=== PATIENT | female | born 1965 | race Hispanic/Latino ===

== ENCOUNTER 2019-11-07 13:51 | Inpatient (IN) | payer SELFPAY ==
[~2019-11-07] VITALS: Ht 160 cm; Wt 79.4 kg
[2019-11-07] MEDS ORDERED: DIATRIZOATE MEGL/DIATRIZOA SOD 30 ML BTL PO ONE (15:07)
--- NOTE | 2019-11-07 15:16 | Diagnostic Imaging Report ---
EXAMINATION: CHEST SINGLE (PORTABLE) COMPARISON: None INDICATION: Possible fluid in lungs ^ERMD ORDER ^[id number] ^1450 ^Y DISCUSSION: Frontal view of the chest obtained at 1442 hours HEART AND MEDIASTINUM: Cardiomegaly and vascular congestion LINES: None. LUNGS: Low lung volumes. No confluent infiltrates. Diffuse alveolar edema PLEURA: No pleural effusion or pneumothorax. BONES AND SOFT TISSUES: No focal osseous lesion. The soft tissues are normal. IMPRESSION: Cardiomegaly, pulmonary vascular congestion, and alveolar edema. Signed by: Dr. Tasha Figueroa MD on 11/07/2019 3:13 PM
[2019-11-07 15:27] LABS: BASOPHILS % 0.4 % (0.0-1.0); EOSINOPHILS # (AUTO) 0.1 (0.0-0.4); EOSINOPHILS % 1.6 % (0.0-6.0); LYMPHOCYTES # (AUTO) 1.3 (1.0-3.2); LYMPHOCYTES % 18.2 % (18.0-39.1); MEAN CORPUSCULAR HEMOGLOBIN 30.8 pg (28-32); MEAN CORPUSCULAR HGB CONC 32.4 g/dL (31-35); MEAN CORPUSCULAR VOLUME 95.1 fL (81-99); MONOCYTES # (AUTO) 0.3 (0.2-0.8); MONOCYTES % 4.9 % (4.4-11.3); NEUTROPHILS # (AUTO) 5.2 (2.1-6.9); NEUTROPHILS % 74.5 % (38.7-80.0); PLATELET COUNT 176 x10e3/uL (140-360); RED BLOOD COUNT 1.82 x10e6/uL (3.6-5.1); RED CELL DISTRIBUTION WIDTH 14.5 % (11.7-14.4)
[2019-11-07 15:35] LABS: HEMOGLOBIN 5.6 g/dL (12.0-16.0)
[2019-11-07 15:36] LABS: HEMATOCRIT 17.3 % (34.2-44.1)
[2019-11-07 15:38] LABS: INR 1.08; PROTHROMBIN TIME 14.7 seconds (11.9-14.5)
[2019-11-07 15:39] LABS: PARTIAL THROMBOPLASTIN TIME 27.6 seconds (23.8-35.5)
[2019-11-07] MEDS ORDERED: SODIUM CHLORIDE 0.9% 250ML 250 ML IV ONE (15:45)
[2019-11-07 15:49] LABS: ALBUMIN 2.3 g/dL (3.5-5.0); ALBUMIN/GLOBULIN RATIO 0.5 (0.8-2.0); CALCIUM 8.3 mg/dL (8.4-10.2); CREATININE, SERUM 6.79 mg/dL (0.57-1.11); MAGNESIUM 1.7 MG/DL (1.3-2.1)
[2019-11-07 15:55] LABS: CREATINE KINASE MB 3.9 ng/mL (0-5.0)
--- NOTE | 2019-11-07 16:33 | Diagnostic Imaging Report ---
CT chest, abdomen and pelvis without intravenous contrast Indication: Anemia, abdominal pain, ^SOB Technique: Thin collimation axial images obtained from the thoracic inlet to the level of the pubic symphysis following the uneventful administration of oral contrast. RADIATION DOSE: Total DLP: 935.6 mGy*cm Estimated effective dose: (DLP x 0.015 x size factor) mSv CTDIvol has been reviewed. It is below the limits set by the Radiation Protocol Committee (RPC). Dose reduction techniques used: Automated exposure control, adjustment of the mAs and/or kVp according to patient size, standardized low-dose protocol, and/or iterative reconstruction technique. Comparison: Chest x-ray 1442 hours. CHEST FINDINGS: Lymph nodes: No enlarged axillary or supraclavicular lymph nodes. Increased number of mediastinal lymph nodes measure less than 10 mm in short axis. Thyroid: Visualized portions are normal. Mediastinum: The heart is enlarged. Pericardial effusion measures 19 mm. The bird of the heart are hyperattenuating relative to the intracardiac blood. Main pulmonary artery measures 3 cm. The ascending aorta measures 3.4 cm. There is a small amount of contrast in the esophagus. No hiatal hernia. Lungs: Right Lung: Subsegmental atelectasis in the middle and lower lobes. No interstitial edema. No nodules. Potential infiltrate in the lateral segment of the lower lobe cannot be excluded Left Lung: Subsegmental atelectasis in the lung bases. No interstitial edema or nodule. Airways: Mild diffuse bronchial wall thickening. No bronchiectasis or filling defects. Pleura: Posterior layering right pleural effusion measures 4 cm with fluid tracking into the major fissure. Posterior layering left pleural effusion measures 1.9 cm with fluid tracking into the major fissure. ABDOMEN FINDINGS: Liver: Normal attenuation. Low attenuating lesion in segment 7 measures 6 mm, too small to characterize. The right lobe measures 22 cm in length Gallbladder: Present and appears normal. No biliary ductal dilatation. Pancreas: Normal attenuation without mass or ductal dilatation. Spleen: Normal in size without mass. Adrenal Glands: No evidence for mass. Kidneys: Right: Normal enhancement. No cortical mass. No hydronephrosis. Left: Normal enhancement. No cortical mass. No hydronephrosis. Lymph Nodes: No enlarged abdominal or periaortic lymph nodes. Aorta: Normal in diameter. Scattered calcifications throughout the aorta and the splenic artery. PELVIS FINDINGS: Bowel: Stomach: Normal. Small Bowel: Normal in caliber with normal wall thickness. Large Bowel: Normal in caliber with normal wall thickness. Appendix: Normal appendix. Bladder: Normal. Lymph Nodes: No enlarged mesenteric, pelvic, or inguinal lymph nodes. Uterus: Present with parametrial calcifications. No endometrial thickening. Ovaries/adnexa: Right and left ovaries are prominent. The right ovary measures 6.6 x 3.1 cm. The left ovary measures 6.6 x 2.9 cm. Peritoneum/retroperitoneum: No free fluid or fluid collection. No peritoneal nodularity. Bones: No lytic or blastic lesions. Soft tissues: Mild subcutaneous edema. IMPRESSION: 1. Bilateral pleural effusions. Moderate-sized pericardial effusion. 2. Hypoattenuation of the intracardiac blood suggestive of anemia. Mild cardiomegaly. 3. Bilateral pulmonary atelectasis. A focus of pneumonia in the right lower lobe cannot be excluded. 4. Prominent ovarian/adnexal structures. Recommend further characterization with pelvic ultrasound. 5. No evidence for bowel obstruction or inflammation. 6. Hepatomegaly. Subcentimeter hepatic cyst. 7. No splenomegaly or lymphadenopathy. Signed by: Dr. Tasha Figueroa MD on 11/07/2019 4:30 PM
[2019-11-07 17:12] LABS: CLARITY,URINE SL CLOUDY (CLEAR); COLOR,URINE YELLOW (YELLOW)
[2019-11-07 17:13] LABS: BILIRUBIN,URINE NEGATIVE (NEGATIVE); KETONES,URINE NEGATIVE (NEGATIVE); LEUKOCYTE ESTERASE ,URINE 2+ (NEGATIVE); NITRITE,URINE NEGATIVE (NEGATIVE); PROTEIN,URINE DIPSTICK 2+ (NEGATIVE); URINE UROBILINOGEN 0.2 mg/dL (0.2 - 1)
[2019-11-07] MEDS ORDERED: FUROSEMIDE INJ 10 MG/ML 2 ML VIAL IV NR ×2 (17:15→23:15)
--- OUTSIDE RECORDS SUMMARY | 2019-11-07 17:18 | XMS REPORT ---
Author [facility] Address Unknown Phone Unavailable Care Team Providers Care Hand Hardener Name Role Phone Jase BROWN Unavailable Unavailable Problems This patient has no known problems. Allergies, Adverse Reactions, Alerts This patient has no known allergies or adverse reactions. Medications This patient has no known medications. Results Test Description Test Time Test Comments Text Results Atomic Results Result Comments CT CHEST WO 2019-11-07 16:19:00 [place] [address] Patient Name: MINERVA GILMAN MR #: [id number] : 1965 Age/Sex: 54/F Req #: [id number] Adm Physician: Ordered by: ALAN FISHER NP Report #: [id number] Location: ER Room/Bed: Procedure: [id number] CT/CT CHEST WO Exam Date: Exam Time: REPORT STATUS: Signed CT chest, abdomen and pelvis without intravenous contrast Indication: A nemia, abdominal pain, SOB Technique: Thin collimation axial images obtained from the thoracic inlet to the level of the pubic symphysis following the uneventful administration of oral contrast. RADIATION DOSE: Total DLP: 935.6 mGy*cm Estimated effective dose: (DLP x 0.015 x size factor) mSv CTDIvol has been reviewed. It is below the limits set by the Radiation Protocol Committee (RPC). Dose reduction techniques used: Automated exposure control, adjustment of the mAs and/or kVp according to patient size, standardized low-dose protocol, and/or iterative reconstruction technique. Comparison: Chest x-ray 1442 hours. CHEST FINDINGS: Lymph nodes: No enlarged axillary or supraclavicular lymph nodes. Increased number of mediastinal lymph nodes measure less than 10 mm in short axis. Thyroid: Visualized portions are normal. Mediastinum: The heart is enlarged. Pericardial effusion measures 19 mm. The bird of the heart are hyperattenuating relative to the intracardiac blood. Main pulmonary artery measures 3 cm. The ascending aorta measures 3.4 cm. There is a small amount of contrast in the esophagus. No hiatal hernia. Lungs: Right Lung: Subsegmental atelectasis in the middle and lower lobes. No interstitial edema. No nodules. Potential infiltrate in the lateral segment of the lower lobe cannot be excluded Left Lung: Subsegmental atelectasis in the lung bases. No interstitial edema or nodule. Airways: Mild diffuse bronchial wall thickening. No bronchiectasis or filling defects. Pleura: Posterior layering right pleural effusion measures 4 cm with fluid tracking into the major fissure. Posterior layering left pleural effusion measures 1.9 cm with fluid tracking into the major fissure. ABDOMEN FINDINGS: Liver: Normal attenuation. Low attenuating lesion in segment 7 measures 6 mm, too small to characterize. The right lobe measures 22 cm in length Gallbladder: Present and appears normal. No biliary ductal dilatation. Pancreas: Normal attenuation without mass or ductal dilatation. Spleen: Normal in size without mass. Adrenal Glands: No evidence for mass. Kidneys: Right: Normal enhancement. No cortical mass. No hydronephrosis. Left: Normal enhancement. No cortical mass. No hydronephrosis. Lymph Nodes: No enlarged abdominal or periaortic lymph nodes. Aorta: Normal in diameter. Scattered calcifications throughout the aorta and the splenic artery. PELVIS FINDINGS: Bowel: Stomach: Normal. Small Bowel: Normal in caliber with normal wall thickness. Large Bowel: Normal in caliber with normal wall thickness. Appendix: Normal appendix. Bladder: Normal. Lymph Nodes: No enlarged mesenteric, pelvic, or inguinal lymph nodes. Uterus: Present with parametrial calcifications. No endometrial thickening. Ovaries/adnexa: Right and left ovaries are prominent. The right ovary measures 6.6 x 3.1 cm. The left ovary measures 6.6 x 2.9 cm. Peritoneum/retroperitoneum: No free fluid or fluid collection. No peritoneal nodularity. Bones: No lytic or blastic lesions. Soft tissues: Mild subcutaneous edema. IMPRESSION: 1. Bilateral pleural effusions. Moderate-sized pericardial effusion. 2. Hypoattenuation of the intracardiac blood suggestive of anemia. Mild cardiomegaly. 3. Bilateral pulmonary atelectasis. A focus of pneumonia in the right lower lobe cannot be excluded. 4. Prominent ovarian/adnexal structures. Recommend further characterization with pelvic ultrasound. 5. No evidence for bowel obstruction or inflammation. 6. Hepatomegaly. Subcentimeter hepatic cyst. 7. No splenomegaly or lymphadenopathy. Signed by: Dr. Amparo Figueroa MD on 11/07/2019 4:30 PM Dictated By: AMPARO FIGUEROA MD 163 Transcribed By: LATHA on 11/07/19 1630 COPY TO: ALAN FISHER NP CT ABDOMEN/PELVIS WO 2019-11-07 16:19:00 [place] [address] Patient Name: MINERVA GILMAN MR #: [id number] : 1965 Age/Sex: 54/F Req #: [id number] Adm Physician: Ordered by: ALAN FISHER NP Report #: [id number] Location: ER Room/Bed: Procedure: [id number] CT/CT ABDOMEN/PELVIS WO Exam Date: Exam Time: REPORT STATUS: Signed CT chest, abdomen and pelvis without intravenous contrast Tenisha cation: Anemia, abdominal pain, SOB Technique: Thin collimation axial images obtained from the thoracic inlet to the level of the pubic symphysis following the uneventful administration of oral contrast. RADIATION DOSE: Total DLP: 935.6 mGy*cm Estimated effective dose: (DLP x 0.015 x size factor) mSv CTDIvol has been reviewed. It is below the limits set by the Radiation Protocol Committee (RPC). Dose reduction techniques used: Automated exposure control, adjustment of the mAs and/or kVp according to patient size, standardized low-dose protocol, and/or iterative reconstruction technique. Comparison: Chest x-ray 1442 hours. CHEST FINDINGS: Lymph nodes: No enlarged axillary or supraclavicular lymph nodes. Increased number of mediastinal lymph nodes measure less than 10 mm in short axis. Thyroid: Visualized portions are normal. Mediastinum: The heart is enlarged. Pericardial effusion measures 19 mm. The bird of the heart are hyperattenuating relative to the intracardiac blood. Main pulmonary artery measures 3 cm. The ascending aorta measures 3.4 cm. There is a small amount of contrast in the esophagus. No hiatal hernia. Lungs: Right Lung: Subsegmental atelectasis in the middle and lower lobes. No interstitial edema. No nodules. Potential infiltrate in the lateral segment of the lower lobe can not be excluded Left Lung: Subsegmental atelectasis in the lung bases. No interstitial edema or nodule. Airways: Mild diffuse bronchial wall thickening. No bronchiectasis or filling defects. Pleura: Posterior layering right pleural effusion measures 4 cm with fluid tracking into the major fissure. Posterior layering left pleural effusion measures 1.9 cm with fluid tracking into the major fissure. ABDOMEN FINDINGS: Liver: Normal attenuation. Low attenuating lesion in segment 7 measures 6 mm, too small to characterize. The right lobe measures 22 cm in length Gallbladder: Present and appears normal. No biliary ductal dilatation. Pancreas: Normal attenuation without mass or ductal dilatation. Spleen: Normal in size without mass. Adrenal Glands: No evidence for mass. Kidneys: Right: Normal enhancement. No cortical mass. No hydronephrosis. Left: Normal enhancement. No cortical mass. No hydronephrosis. Lymph Nodes: No enlarged abdominal or periaortic lymph nodes. Aorta: Normal in diameter. Scattered calcifications throughout the aorta and the splenic artery. PELVIS FINDINGS: Bowel: Stomach: Normal. Small Bowel: Normal in caliber with normal wall thickness. Large Bowel: Normal in caliber with normal wall thickness. Appendix: Normal appendix. Bladder: Normal. Lymph Nodes: No enlarged mesenteric, pelvic, or inguinal lymph nodes. Uterus: Present with parametrial calcifications. No endometrial thickening. Ovaries/adnexa: Right and left ovaries are prominent. The right ovary measures 6.6 x 3.1 cm. The left ovary measures 6.6 x 2.9 cm. Peritoneum/retroperitoneum: No free fluid or fluid collection. No peritoneal nodularity. Bones: No lytic or blastic lesions. Soft tissues: Mild subcutaneous edema. IMPRESSION: 1. Bilateral pleural effusions. Moderate-sized pericardial effusion. 2. Hypoattenuation of the intracardiac blood suggestive of anemia. Mild cardiomegaly. 3. Bilateral pulmonary atelectasis. A focus of pneumonia in the right lower lobe cannot be excluded. 4. Prominent ovarian/adnexal structures. Recommend further characterization with pelvic ultrasound. 5. No evidence for bowel obstruction or inflammation. 6. Hepatomegaly. Subcentimeter hepatic cyst. 7. No splenomegaly or lymphadenopathy. Signed by: Dr. Amparo Figueroa MD on 11/07/2019 4:30 PM Dictated By: AMPARO FIGUEROA MD 163 Transcribed By: LATHA on 11/07/19 1630 COPY TO: ALAN FISHER NP CHEST SINGLE (PORTABLE) 2019-11-07 15:11:00 [place] [address] Patient Name: MINERVA GILMAN MR #: [id number] : 1965 Age/Sex: 54/F Req #: [id number] Adm Physician: Ordered by: ALAN FISHER NP Report #: [id number] Location: ER Room/Bed: Procedure: [id number] DX/CHEST SINGLE (PORTABLE) Exam Date: 11/07/19 Exam Time: 1450 REPORT STATUS: Signed EXAMINATION: CHEST SINGLE (PORTABLE) COMPARI SON: None INDICATION: Possible fluid in lungs ERMD ORDER [id number] 1450 Y DISCUSSION: Frontal view of the chest obtained at 1442 hours HEART AND MEDIASTINUM: Cardiomegaly and vascular congestion LINES: None. LUNGS: Low lung volumes. No confluent infiltrates. Diffuse alveolar edema PLEURA: No pleural effusion or pneumothorax. BONES AND SOFT TISSUES: No focal osseous lesion. The soft tissues are normal. IMPRESSION: Cardiomegaly, pulmonary vascular congestion, and alveolar edema. Signed by: Dr. Amparo Figueroa MD on 11/07/2019 3:13 PM Dictated By: AMPARO FIGUEROA MD 1513 Transcribed By: LATHA on 11/07/19 1513 COPY TO: ALAN FISHER NP
[2019-11-07 17:24] LABS: BACTERIA,URINE MODERATE /HPF; EPITHELIAL CELLS,URINE MANY /LPF
--- NOTE | 2019-11-07 18:38 | NUR ---
received pt from ER. pt made comfortable to bed, orientation to room given, call villegas at bedside
[2019-11-07 18:45] VITALS: BP 190/90
[2019-11-07] MEDS ORDERED: SODIUM CHLORIDE 0.9% 1000ML 1,000 ML IV SCH (19:15)
[2019-11-07] MEDS ORDERED: ALBUTEROL/IPRATROPIUM 3 ML NEB NEB PRN (19:15)
[2019-11-07] MEDS ORDERED: ACETAMINOPHEN 325 MG TAB PO PRN (19:15)
[2019-11-07 20:00] VITALS: BP 190/90
--- NOTE | 2019-11-07 20:15 | NUR ---
Received change of shift report from AM nurse. Walking rounds completed.
[2019-11-07] MEDS ORDERED: MELATONIN 5 MG TABLET PO PRN (21:00)
[2019-11-07] MEDS: CEFTRIAXONE SOD 1 GM/NS 50 ML 50 ML IV SCH (21:00)
[2019-11-07] MEDS ORDERED: PIPERACILLIN/TAZO 2.25 GM 50 ML IV SCH (21:00)
--- NOTE | 2019-11-07 21:00 | NUR ---
Patient sitting up in bed, slightly sob but in no distress. Called RT for a TX. TX given. Patient to get blood transfusion. Waiting to hear from lab. Patient AAOx3 but [place] in left ear and nearly blind. Denies pain at this time.
[2019-11-07] MEDS: AZITHROMYCIN 500MG/NS 250 ML 250 ML IV SCH (22:00)
[2019-11-07 22:25] LABS: CREATINE KINASE MB 2.4 ng/mL (0-5.0)
[2019-11-07 23:56] VITALS: BP 176/53
[2019-11-08] VITALS (8 sets, daily range): BP systolic 151–193; BP diastolic 69–89
--- NOTE | 2019-11-08 | NUR ---
Patient received BP meds for BP of 170/79. Will start blood in one hour. Family at bedside.
[2019-11-08] MEDS: HYDRALAZINE HCL 20 MG/ML VIAL IV PRN (00:27)
--- NOTE | 2019-11-08 01:00 | NUR ---
Started first unit of blood. Patient tolerating well. Continue monitor. See blood sheet for vitals during transfusion. Patient stable with no c/o at this time.
[2019-11-08] MEDS ORDERED: SODIUM CHLORIDE 0.9% 250ML 250 ML ONE (01:01)
[2019-11-08] MEDS ORDERED: NORVASC5 MG PO (01:55)
[2019-11-08] MEDS ORDERED: GLIPIZIDE ER5 MG PO (01:56)
[2019-11-08] MEDS ORDERED: HYDROCHLOROTHIA25 MG PO (02:03)
[2019-11-08] MEDS ORDERED: MUCINEX DM ER1 EACH PO (02:03)
[2019-11-08] MEDS ORDERED: LOSARTAN POTAS100 MG PO (02:04)
[2019-11-08] MEDS ORDERED: SEVELAMER CARB800 MG PO (02:12)
[2019-11-08] MEDS ORDERED: VASOTEC5 MG PO (02:13)
[2019-11-08] MEDS ORDERED: DIOVAN160 MG PO (02:15)
[2019-11-08] MEDS: ALBUTEROL/IPRATROPIUM 3 ML NEB NEB SCH ×3 (03:10→19:30)
[2019-11-08] MEDS ORDERED: FUROSEMIDE INJ 10 MG/ML 4 ML VIAL ONE (03:58)
--- NOTE | 2019-11-08 04:00 | NUR ---
Patient increased coughing, nose drainging and chills. First unit of blood completed. Patient sitting up in chair. Will call MD regarding 2 unit of blood.
--- NOTE | 2019-11-08 05:22 | NUR ---
Called s/maury Santiago and received orders for stat CXR and RT then reassess after x-ray.
--- NOTE | 2019-11-08 06:02 | Diagnostic Imaging Report ---
Examination: Single AP view of the chest. COMPARISON: CT chest abdomen and pelvis 11/07/2019 INDICATION: Shortness of breath DISCUSSION: Lungs are reasonably well inflated. Small bilateral pleural effusions are seen to better advantage on comparison CT. No new consolidation or pneumothorax. Enlargement of the cardiac silhouette shown to represent a pericardial effusion on comparison examination. Mild pulmonary venous congestion. No acute osseous abnormalities. IMPRESSION: Pulmonary venous congestion and small bilateral pleural effusions. Findings seen to better advantage on CT chest 11/07/2019. Signed by: Dr. Dell Sung M.D. on 11/08/2019 5:58 AM
[2019-11-08 06:46] LABS: BASOPHILS # (AUTO) 0.1 (0.0-0.1); BASOPHILS % 0.7 % (0.0-1.0); EOSINOPHILS # (AUTO) 0.1 (0.0-0.4); EOSINOPHILS % 1.1 % (0.0-6.0); LYMPHOCYTES # (AUTO) 1.2 (1.0-3.2); LYMPHOCYTES % 15.6 % (18.0-39.1); MEAN CORPUSCULAR HGB CONC 32.2 g/dL (31-35); MEAN CORPUSCULAR VOLUME 96.3 fL (81-99); MONOCYTES # (AUTO) 0.6 (0.2-0.8); MONOCYTES % 7.5 % (4.4-11.3); NEUTROPHILS # (AUTO) 5.6 (2.1-6.9); NEUTROPHILS % 74.6 % (38.7-80.0); PLATELET COUNT 206 x10e3/uL (140-360); RED BLOOD COUNT 2.16 x10e6/uL (3.6-5.1); RED CELL DISTRIBUTION WIDTH 14.1 % (11.7-14.4)
[2019-11-08 06:49] LABS: HEMATOCRIT 20.8 % (34.2-44.1); HEMOGLOBIN 6.7 g/dL (12.0-16.0)
[2019-11-08 07:19] LABS: CREATINE KINASE MB 2.2 ng/mL (0-5.0)
[2019-11-08] MEDS: ONDANSETRON HCL INJ 2MG/ML 2ML 2 MG/ML VIAL IV PRN ×3 (07:19→22:32)
[2019-11-08] MEDS ORDERED: FAMOTIDINE 20 MG TAB PO SCH (07:30)
[2019-11-08 07:35] LABS: ALBUMIN 2.2 g/dL (3.5-5.0); BILIRUBIN,DIRECT 0.2 mg/dL (0.0-0.5); MAGNESIUM 1.7 MG/DL (1.3-2.1)
[2019-11-08 07:56] LABS: THYROID STIMULATING HORMONE 3.183 uIU/mL (0.350-4.940)
[2019-11-08 08:09] LABS: ANION GAP 14.1 mmol/L (8-16); CALCIUM 8.3 mg/dL (8.4-10.2); CREATININE, SERUM 6.85 mg/dL (0.57-1.11); MAGNESIUM 1.7 MG/DL (1.3-2.1); PHOSPHORUS 5.2 MG/DL (2.3-4.7); POTASSIUM 4.1 mmol/L (3.5-5.1)
[2019-11-08 08:22] LABS: FERRITIN 67.08 ng/mL (4.63-204.00)
[2019-11-08] MEDS: GUAIFENESIN 600MG/DEXTROMETHORPHAN 30MG TABSR PO SCH ×2 (08:46→18:16)
[2019-11-08] MEDS ORDERED: FUROSEMIDE INJ 10 MG/ML 10 ML VIAL IV ONE (10:45)
[2019-11-08] MEDS: AMLODIPINE BESYLATE 5 MG TAB PO SCH (11:15)
--- NOTE | 2019-11-08 13:22 | Diagnostic Imaging Report ---
Ventilation/perfusion lung scan Clinical Information: 54 F with SOB and cough. Chest radiograph shows small bilateral pleural effusions. Comparison: Chest radiograph 11/08/2019; CT chest 11/07/2019 Discussion: Xenon-133 gas 13.8 mCi was administered via inhalation. Dynamic images of the lungs in the posterior projection were obtained through single breath, equilibrium, and washout phases. A moderate ventilatory defect is seen in the right lung base laterally. Otherwise, distribution of tracer activity is minimally irregular throughout the lungs. Washout of tracer is diffusely delayed with air trapping in the right lung base. Perfusion images of the lungs were obtained in multiple projections following intravenous administration of approximately 5 mCi of Tc-99m MAA. Distribution of tracer is irregular throughout the lungs. Tracer is very irregular throughout the right lower lobe with a segmental moderate-sized perfusion defect in the lateral aspect of the right lung base. The ventilation images are matched to the perfusion images. The cardiomediastinal silhouette is enlarged. Impression: 1. Scan findings represent an INTERMEDIATE probability for acute pulmonary embolic disease based on the PIOPED II criteria. This is assigned on the presence of a triple-match in the RLL. 2. Scan evidence of parenchymal lung disease in the right lower lobe. 3. Scan evidence of obstructive lung disease. 4. Enlarged cardiac silhouette. Signed by: Dr. Giovanna Hutchison M.D. on 11/08/2019 1:19 PM
[2019-11-08] MEDS ORDERED: BUMETANIDE 10 MG in SODIUM CHLORIDE 0.9% 100 ML 60 ML IV SCH (15:00)
[2019-11-08] MEDS ORDERED: EPOETIN ALFA-EPBX 10,000 UNIT/ML VIAL SC NR (15:30)
[2019-11-08] MEDS: BUMETANIDE 10 MG in SODIUM CHLORIDE 0.9% 100 ML 60 ML IV SCH ×2 (17:05→22:31)
[2019-11-08 17:15] LABS: CREATINE KINASE MB 2.3 ng/mL (0-5.0)
--- NOTE | 2019-11-08 17:20 | Consultation ---
DATE OF CONSULTATION: 11/08/2019 REASON FOR CONSULTATION: Pericardial effusion. CHIEF COMPLAINT: Shortness of breath. HISTORY OF PRESENT ILLNESS: This is a 54-year-old female with history of hypertension, diabetes, and chronic kidney disease. The patient presents to [facility] ER with complaints of shortness of breath. Imaging noted with pulmonary edema, bilateral pleural effusions, and CT noted with moderate pericardial effusion. Cardiology was consulted to evaluate the patient. The patient is seen in room, reports has been short of breath for the past several months, went to see her primary care physician in which was advised to go to the ER for further evaluation. The patient reports shortness of breath for several months with minimal activities. Lower extremity edema and profound weakness. The patient denies any chest pains. Main complaint is weakness and lower extremity edema and shortness of breath. PAST MEDICAL HISTORY: Diabetes, hypertension, chronic kidney disease. PAST SURGICAL HISTORY: Denies any surgeries. SOCIAL HISTORY: She is . She denies any alcohol or tobacco use. FAMILY HISTORY: Mother , history of diabetes and heart disease. Father , history of leukemia. HOME MEDICATIONS: Include hydrochlorothiazide 25 mg daily, losartan 100 mg daily, amlodipine 10 mg daily, glipizide 10 mg daily. ALLERGIES: NO KNOWN ALLERGIES. REVIEW OF SYSTEMS: GENERAL: Reports positive weight gain. Positive fatigue and weakness. Denies any fevers or chills. SKIN: No rashes or sores. HEENT: No nausea, vomiting, vision change, blurred vision, double vision, epistaxis, sore throat, or swollen neck. CARDIAC: Positive for dyspnea on exertion. Positive for lower extremity edema. Denies any chest pain. RESPIRATORY: Positive for shortness of breath. Positive for intermittent cough, nonproductive. Denies any hemoptysis. GI: Reports poor appetite. No nausea, vomiting, diarrhea, constipation, melena, hematochezia, or tarry bloody stools. URINARY: Denies any frequency, urgency, dysuria, or hematuria. VASCULAR: Positive for lower extremity edema. No claudication reported. MUSCULOSKELETAL: Positive for muscle weakness, joint pains, back pains, and lower extremity swelling. NEUROLOGIC: Denies any numbness, tingling, or tremors. Positive for weakness. Denies any fainting or blackout seizures. HEMATOLOGY: Denies any anemia or bruising. ENDOCRINE: Denies heat or cold intolerance, polyphagia, or polydipsia. PHYSICAL EXAMINATION: VITAL SIGNS: Height 63 inches, weight 176 pounds. Vital signs, temperature 98.4, pulse 97, respiratory rate 16, blood pressure 178/81, pulse ox 99 on room air. GENERAL: Appears stated age, reliable informant, appears chronically ill. SKIN: No rashes or bruises noted. HEENT: Normocephalic. Pupils equal and reactive. Extraocular movements intact. Trachea midline. No JVD. No carotid bruit noted. HEART: Regular rate and rhythm. No murmurs or clicks noted or rubs. LUNGS: Bilateral breath sounds with crackles at the bases and also diminished bilaterally. ABDOMEN: Soft, nontender, and nondistended. No organomegaly noted. MUSCULOSKELETAL: Positive for generalized weakness. Positive for lower extremity edema. VASCULAR: +2 radial pulse bilaterally, +2 DP and PT pulses bilaterally. NEUROLOGIC: Cranial nerves II through XII seem intact. LABORATORY DATA: White count 6, hemoglobin of 5.6, hematocrit of 17, platelets 176. Chemistry, sodium 137, potassium 4.0, chloride 113, BUN 46, creatinine 6.7, GFR 6, A1c of 5.3. Troponin 0.04, next 0.03, next 0.3. BNP 1342. TSH 3.1. DIAGNOSTIC DATA: Chest x-ray showing cardiomegaly, pulmonary congestion. CT abdomen and chest showing bilateral pleural effusions and moderate-sized pericardial effusion and bilateral pulmonary atelectasis and prominent ovarian and renal structures. No EKG noted in chart. ASSESSMENT: 1. Chronic kidney disease, stage 5. 2. Profound anemia. 3. Bilateral pleural effusions. 4. Pericardial effusion noted on CT. PLAN: 1. The patient presents to [facility] ER with complaints of several months of complaints of lower extremity edema, shortness of breath noted with advanced chronic renal ailure and found anemia. Notable pericardial effusion on CT. Cardiology was consulted. 2. We will get echo to evaluate pericardial effusion. 3. However, mainstay of therapy will need renal evaluation and possible HD therapy. 4. From cardiac standpoint, therapy will be supportive. Thank you very much for this consult. Dictated by Dell Pizano NP Jim Strauss MD DC/NOL /[id number]
[2019-11-08 17:26] LABS: HIV 1&2 AB SCREEN NON-REACTIVE (NONREACTIVE)
[2019-11-08] MEDS: SEVELAMER CARBONATE 800 MG TAB PO SCH (18:16)
[2019-11-08] MEDS: SODIUM BICARBONATE 650 MG TAB PO SCH (18:16)
[2019-11-08] MEDS: DOCUSATE SODIUM 100 MG CAP PO SCH (18:16)
[2019-11-08] MEDS: AZITHROMYCIN 500MG/NS 250 ML 250 ML IV SCH (19:15)
[2019-11-08] MEDS: CEFTRIAXONE SOD 1 GM/NS 50 ML 50 ML IV SCH (19:15)
--- NOTE | 2019-11-08 19:25 | Diagnostic Imaging Report ---
EXAM: Renal Ultrasound INDICATION: ^arf ^[id number] ^[id number] COMPARISON: CT abdomen and pelvis without contrast 11/07/2019 TECHNIQUE: Transverse and longitudinal images of the kidneys and bladder were obtained. FINDINGS: Right Kidney: Size: 10.4 cm Echogenicity: Normal Parenchymal thickness: Normal Collecting system: No hydronephrosis Stones: None Cyst/Mass: None Left Kidney: Size: 10.9 cm Echogenicity: Normal Parenchymal thickness: Normal Collecting system: No hydronephrosis Stones: None Cyst/Mass: None Bladder: Unremarkable. Left ureteral jet is identified. Right ureteral jet not identified likely related to scan timing. IMPRESSION: Normal renal ultrasound exam. Signed by: Dr. Dell Sung M.D. on 11/08/2019 7:23 PM
--- NOTE | 2019-11-08 19:31 | NUR ---
Received change of shift report from AM nurse. Walking rounds completed.
--- NOTE | 2019-11-08 21:56 | Consultation ---
DATE OF CONSULTATION: 11/08/2019 Nephrology Consultation Note CHIEF COMPLAINT: Shortness of breath. REASON FOR CONSULTATION: CKD management, possibly now end-stage renal disease. HISTORY OF PRESENT ILLNESS: This is a 54-year-old female, very pleasant patient with history of type 2 diabetes and hypertension, uncontrolled for significant number of years who presented to the emergency room with underlying shortness of breath. The patient sees a physician here in [place] and has been seeing him for the last 2 years. Of note, the family reports that about several months ago, she was told by the physician that she has abnormal kidney function and needs further evaluation and management. The patient has been very noncompliant seeing a physician in the past and of note has recently started seeing a doctor over the last 2 years. Apparently, the patient has had unknown history of type 2 diabetes for significant number of years as well as hypertension. Of note, she is aware of having her diabetes for more than 10 plus years if not longer, but has not seek any care throughout this time. She started getting oral anti-glycemic medications over the last 2 years, but recently her blood glucose level is found to be normal and was taken off her oral anti-glycemics. Family reports that she has been very nauseous, tired, weak, fatigued, and not eating much over the last several months. She does have asterixis on examination. She also reports some increased fatigue and sleepiness, but denies any headache. She does report some nausea and occasional vomiting. The patient feels more down, felt very depressed according to her family. The patient was seen and evaluated at bedside on the medical floor. She is currently doing well with no other issues at this time. No reports of any suicidal or homicidal ideation. She is just feeling very tired and weak, and that is why, she feels very down and depressed. She has been having increased anasarca over the last several months as well. REVIEW OF SYSTEMS: Pertinent positives; nausea, vomiting, decreased oral intake, fatigue, weak, sleepiness, lower extremity edema. The rest of 14-point review of systems are reviewed with the patient and are negative. ALLERGIES: NO KNOWN DRUG ALLERGIES. HOME MEDICATIONS: 1. Enalapril. 2. Glipizide. 3. Hydrochlorothiazide. 4. Losartan. 5. Valsartan. 6. Amlodipine. 7. Renvela. PAST MEDICAL HISTORY: Type 2 diabetes and hypertension, both uncontrolled; unknown history of chronic kidney disease. PAST SURGICAL HISTORY: None. FAMILY HISTORY: Hypertension, diabetes. SOCIAL HISTORY: No drugs. No alcohol. Does not smoke. She is . She has children. She does not work. PHYSICAL EXAMINATION: VITAL SIGNS: Temperature is 98.1, pulse is 110, respiratory rate is 22, last blood pressure recorded is 193/89, pulse ox 99% on room air. GENERAL: Not in acute distress. Alert and oriented x3. Cooperative on examination. HEENT: Head; normocephalic, atraumatic. Eyes; pupils are equal, round, and reactive to light bilaterally. Extraocular movements are intact bilaterally. Throat; no evidence of erythema or exudates in the posterior pharynx. Has poor dentition. NECK: Supple. Good range of motion. PULMONARY: Clear to auscultation bilaterally. No wheezing, no rales, no rhonchi, no crackles appreciated. CARDIOVASCULAR: Positive S1, S2. No murmurs, rubs, or gallops appreciated. ABDOMEN: Soft, nondistended, and nontender to palpation. Bowel sounds present. MUSCULOSKELETAL: Strength is 5/5 throughout. No evidence of any muscle deficits on examination. No weakness appreciated. NEUROLOGIC: Cranial nerves II through XII grossly intact. No evidence of any neurological deficits on exam. SKIN: Intact. Warm to touch. Good cap refill. PSYCHIATRIC: Normal affect and mood. EXTREMITIES: She has significant anasarca with 3+ pedal edema in bilateral lower extremities. LABORATORY DATA: Show white count 7.5, hemoglobin is 6.7, hematocrit is 20.9, platelets of 206. Coagulation; PT 14, INR 1.08, PTT 27.6. D-dimer is 1.67. Chemistry; sodium was 139, potassium is 4.1, chloride is 115, bicarbonate is 14, anion gap of 14, BUN is 50, creatinine is 6.85, A1c is 5.3. Lactic acid was normal. Iron saturation 28%. LFTs within normal range. Troponins were negative. Albumin 2.2. TSH 3.183. Vitamin B12 of 742. Urinalysis shows 2+ protein, 1+ glucose, cloudy urine. MICROBIOLOGY: Blood and urine cultures are pending. IMAGING STUDIES: Chest x-ray shows some vascular congestion with cardiomegaly. Chest CT, bilateral pleural effusions with moderate size pericardial effusion. Hypoattenuation of cardiac blood suggestive of anemia. Mild cardiomegaly. Bilateral pulmonary atelectasis. No evidence of bowel obstruction or inflammation. No splenomegaly or adenopathy. CT abdomen and pelvis shows the patient has normal enhancement of the kidneys. No cortical mass. No hydronephrosis. V/Q scan noted, shows intermediate probability for acute pulmonary embolism based on the criteria. There is a sign, presence of triple match in the right lower quadrant. There is scant evidence of obstructive lung disease. IMPRESSION: 1. Chronic kidney disease, stage 5, likely end-stage renal disease due to uncontrolled type 2 diabetes and hypertension. 2. Anemia of chronic kidney disease. 3. Secondary hyperparathyroidism. 4. Uncontrolled type 2 diabetes. 5. Hypertension. 6. Metabolic acidosis due to renal failure. PLAN: At this time, I had a long discussion with the patient and the family at bedside and it seems that this patient likely has been having uncontrolled type 2 diabetes and hypertension for a significant number of years, and of note, she was told by her PCP that she has renal failure and needs to watch her diet. She has not been seeing a doctor for in the past and has been recently seeing a doctor over the last 2 years. I asked the family to bring the records from the primary care physician's office tomorrow in an order for me to verify the renal function more than a year ago that will give me a baseline understanding of what her renal function is. At this time, I feel like that the patient likely has end-stage renal disease based on her symptoms that she has currently occurring as well as her elevated phosphorus level. Also, from her uncontrolled type 2 diabetes for a number of years as well as hypertension, which is likely etiology. She was also found to have hypoalbuminemia, which is also likely etiology as well. At this time, I did order a urine protein to creatinine, microalbumin to creatinine as well as several serologies including p-ANCA, c-ANCA, anti-GBM, dimf-[id number]-ircybvdp DNA, renal ultrasound, C3, C4, intact PTH as well for further analysis and evaluation. I did consult with IR to put a temporary hemodialysis catheter. The patient will receive 3 treatments of HD starting tomorrow, titrating slow to reach to maximum blood flow rate on day #4. I did discuss with the family about looking to see possibly getting likely insurance as the patient would like to be on chronic hemodialysis. Family has been working on that. I will get Case Management involved as well to help and assist in this as she will likely end up in the dialysis unit as well. If the renal function does not improve, which I feel less likely will, then I may consider a renal biopsy if the size of the kidneys are within normal range based on renal ultrasound. I will go ahead and start her on Bumex 2 mg/hour to help with her breathing as she is currently very short of breath and cannot lay flat. She does also have significant amount of pericardial effusion, which is likely to be from uremia as well. I will start the patient on sodium bicarbonate tablets at 1350 mg p.o. b.i.d., and I will start her on erythropoietin at 10,000 units subcu 3 times per week. We will get morning labs. We will monitor all the serologies. I had a long discussion with the family. I discussed with them overall plan of care, also discussed with them about hemodialysis, the risks and benefits involved, and they seem to be very receptive and agree with my plan of care. Nurse was present throughout the entire conversation. MD LISA Bustamante/MIKE /[id number]
--- NOTE | 2019-11-08 22:33 | NUR ---
Patient c/o n/v and pain. Given meds as ordered by MD. Cold towel to head and neck. Patient sitting up in chair at bedside.
--- NOTE | 2019-11-08 22:57 | NUR ---
Patient up ambulation to the restroom with walker and 1 person asst. Patient voiding 300cc at at time. Continue monitor.
[2019-11-09] VITALS (9 sets, daily range): BP systolic 124–177; BP diastolic 60–76
[2019-11-09] MEDS: ALBUTEROL/IPRATROPIUM 3 ML NEB NEB SCH ×4 (00:25→19:45)
--- NOTE | 2019-11-09 01:04 | NUR ---
Patient state still have pain. Called and s/w Alberto. Received orders. Order completed. Monitor for changes or improvement.
[2019-11-09] MEDS: BUMETANIDE 10 MG in SODIUM CHLORIDE 0.9% 100 ML 60 ML IV SCH ×4 (03:00→22:30)
[2019-11-09] MEDS: TRAMADOL HCL 50 MG TAB PO PRN ×2 (03:37→16:10)
[2019-11-09 05:49] LABS: BASOPHILS % 0.5 % (0.0-1.0); EOSINOPHILS % 0.4 % (0.0-6.0); LYMPHOCYTES # (AUTO) 1.1 (1.0-3.2); MEAN CORPUSCULAR HEMOGLOBIN 30.8 pg (28-32); MEAN CORPUSCULAR HGB CONC 32.5 g/dL (31-35); MONOCYTES # (AUTO) 0.5 (0.2-0.8); MONOCYTES % 6.5 % (4.4-11.3); NEUTROPHILS # (AUTO) 5.7 (2.1-6.9); NEUTROPHILS % 77.2 % (38.7-80.0); PLATELET COUNT 176 x10e3/uL (140-360); RED BLOOD COUNT 2.01 x10e6/uL (3.6-5.1); RED CELL DISTRIBUTION WIDTH 14.1 % (11.7-14.4)
[2019-11-09 06:02] LABS: HEMOGLOBIN 6.2 g/dL (12.0-16.0)
[2019-11-09 06:03] LABS: HEMATOCRIT 19.1 % (34.2-44.1)
[2019-11-09 06:13] LABS: ANION GAP 12.8 mmol/L (8-16); CALCIUM 7.9 mg/dL (8.4-10.2); CREATININE, SERUM 6.94 mg/dL (0.57-1.11); MAGNESIUM 1.7 MG/DL (1.3-2.1); POTASSIUM 3.8 mmol/L (3.5-5.1)
[2019-11-09 06:55] LABS: PHOSPHORUS 5.9 MG/DL (2.3-4.7)
--- NOTE | 2019-11-09 07:20 | NUR ---
PATIENT IN BED RESTING WITH HEAD OF BED ELEVATED, NO DISTRESS NOTED. TELEMETRY BOX IN PLACE. BED IN LOWER POSITION, CALL LIGHT AT REACH.
[2019-11-09] MEDS: SEVELAMER CARBONATE 800 MG TAB PO SCH ×2 (08:00→17:00)
[2019-11-09] MEDS: DOCUSATE SODIUM 100 MG CAP PO SCH ×2 (09:00→17:00)
[2019-11-09] MEDS: SODIUM BICARBONATE 650 MG TAB PO SCH ×2 (09:00→17:00)
[2019-11-09] MEDS: AMLODIPINE BESYLATE 5 MG TAB PO SCH (09:00)
[2019-11-09] MEDS: GUAIFENESIN 600MG/DEXTROMETHORPHAN 30MG TABSR PO SCH ×2 (09:00→17:00)
--- NOTE | 2019-11-09 09:00 | NUR ---
PATIENT OFF UNIT FOR A PROCEDURE.
[2019-11-09] MEDS: ONDANSETRON HCL INJ 2MG/ML 2ML 2 MG/ML VIAL IV PRN (09:50)
[2019-11-09] MEDS: HYDRALAZINE HCL 20 MG/ML VIAL IV PRN (09:50)
--- NOTE | 2019-11-09 09:57 | NUR ---
PATIENT BACK TO UNIT FROM RADIOLOGY. HAD A DIALYSIS CATHETER TO RIGHT UPPER CHEST WITH DRESSING INTACT. C/O NAUSEA AND WAS MEDICATED. ASSISTED BACK IN BED. WILL CLOSELY MONITOR.
[2019-11-09] MEDS ORDERED: CHLORASEPTIC SPRAY 177 ML BTL MM PRN (10:00)
--- NOTE | 2019-11-09 10:05 | Diagnostic Imaging Report ---
Nontunneled dialysis catheter insertion, 11/09/2019. History: Acute kidney injury requiring hemodialysis. Modality: Fluoroscopy and sonography. Sedation: None. Newspaper Vendor: Aaron Ling MD. Supervisor Vendor Quality: None. Approach: Right internal jugular vein Estimated blood loss: < 5 cc. Specimen: None. Fluoroscopy Time: 0.2 min. Reference Air Kerma (Ka, r): 3.1 mGy. Technique: Informed written consent was obtained. Discussion of risks, benefits, and alternatives were made with the patient. The patient expressed understanding and agreed to proceed. A universal timeout was performed prior to starting the procedure. All elements maximal sterile barrier technique was utilized for this procedure, including utilization of sterile scrub solution for skin prep, a large sterile sheet to cover the areas of the patient that were not prepped, and hand hygiene, mask, head covering, and sterile gown for performing radiologist and scrub technologist.The skin was anesthetized with 2% lidocaine. Ultrasound evaluation showed a patent and compressible right internal jugular vein, which was punctured under direct real-time ultrasound guidance with a micropuncture needle. An ultrasound image was saved to PACS. A microwire and sheath were placed. A 0.035 inch wire was placed through the sheath into the right atrium. The tract was serially dilated. The 15 cm Trialysis temporary dialysis catheter was placed over the wire into the vein. The ports were flushed and aspirated easily following placement. The catheter was sutured to the skin to secure its placement. Vital signs were monitored throughout the procedure by a nurse, and remained stable. The patient tolerated the procedure well and left the department in the same condition. Results: Spot radiograph of the chest demonstrates the new dialysis catheter to lie in the expected position with its tip overlying the superior right atrium. Impression: Successful, uncomplicated placement of a right internal jugular nontunneled dialysis catheter using sonographic and fluoroscopic guidance. Signed by: Aaron Ling MD on 11/09/2019 10:02 AM
--- NOTE | 2019-11-09 13:57 | NUR ---
GAVE PACKET OF INFORMATION WITH COMMUNITY [employer] FOR ASSISTANCE WITH LOW TO NO INCOME TO PATIENT. RESOURCES THAT PATIENT MAY BE ABLE TO FOLLOW UP UPON DISCHARGE. PT EDUCATED ON EACH RESOURCE AND UNDERSTANDING HOW TO FOLLOW UP TO SEE IF QUALIFIED FOR EACH RESOURCE.
--- NOTE | 2019-11-09 14:17 | NUR ---
Nutrition Intervention Note RD Recommendation(s) for Physician: - Continue Renal diet as tolerated, consider 1500 ADA restriction if BG trends up - Recommend Nepro BID for adequacy Plan of Care: RD following, monitoring for tolerance and adequacy. ONS- Nepro BID. Nutrition reason for involvement: Nutrition Risk Trigger RD Assessment 11/08: 54 YOF admitted for anemia, renal failure, and pleural effusion. Pt seen today per MST screen. Pt sleeping at time of visit, pt's son and daughter at bedside provided hx. They report pt has had decreased appetite and intake for months, currently eating 2 meals a day with vomiting daily as well as intermittent diarrhea. Pt's daughter pt has experienced taste changes and food aversions recently, but continues to try to eat. Wt hx not available and pt's family does not know UBW, pt appears well nourished. Pt's family receptive to diet education at time of visit, materials provided and recommendations discussed- all questions answered at time of visit. Noted pt s/p non-tunneled dialysis catheter placement this am. Will continue to monitor. Principal Problems/Diagnoses: anemia, renal failure, pleural effusion PMH: HTN, CKD, DM GI: LBM 11/08 Skin: intact, BLE edema per MD notes Labs: (11/08): Na 140, K 3.8, BUN 50, Cr 6.94, Gluc 134, Phos 5.9, Mg 1.9 Meds: bumex drip, zofran, abx, lasix, Na Bicarb, renvela, colace Ht: 63 in Wt: 176 lb BMI: 31.17kg/m2 IBW: 115 lb Malnutrition Evaluation (11/09/19) The patient does not meet criteria for a specified degree of malnutrition at this time. Will re-evaluate at follow-up as appropriate. Energy intake: <75% of estimated energy requirements for >3 months Weight loss: LAVENRE, family can not recall wt hx and pt has CKD5 associated fluid gain Fat loss: none, ample skinfold thickness Muscle loss: none, should round, clavicle not visible Supporting Evidence: Fluid accumulation: none Functional Status: not assessed Nutrition Prescription (Diet Order): Renal Estimated Nutritional Needs: 8023-1169 calories/day (22-25 kcal/kg IBW) 63-78 g protein/day (1.2-1.5 g pro/kg IBW) Diet Adequacy: Not meeting calorie needs, Not meeting protein needs Diet Tolerance: tolerating po Diet Education Needs Assessment: Diet education indicated, information provided to pt's son and daughter on 11/08. Learner(s): pt's son and daughter Barriers: none Cultural/Language Modifications: none Readiness: eager Method: handouts, discussion Topics: ESRD nutrition therapy- K, Na, Phos, protein, fluid Understanding/Compliance: good Nutrition Care Level: moderate Nutrition Diagnosis: Inadequate energy and protein intake related to CKD as evidenced by N/V/D, taste changes, and decreased po intake. Goal: Patient will meet 75-100% of estimated needs by follow up Progress: N/A Interventions: - Mineral modified diet, Commercial beverage, Survival information, Recommended Modifications Monitoring/Evaluation: -Total energy intake, Total protein intake, Prescription medication, Modified diet, Liquid supplement, Weight change, Ability to recall nutrition goals, Level of knowledge, Self management Signed: Mary Fu RD, LD, [facility]
--- NOTE | 2019-11-09 14:29 | Progress Note ---
DATE: 11/09/2019 Nephrology Progress Note SUBJECTIVE: The patient still feels very weak and fatigued. She is scheduled for hemodialysis today. She did get a right temporary IJ placed today. Had very minimal urine output despite being on Bumex. PHYSICAL EXAMINATION: VITAL SIGNS: Temperature is 97.8, pulse is 108, respiratory rate 17, blood pressure 135/60, pulse ox 97% on room air. GENERAL: Not in acute distress. Alert and oriented x3. Cooperative on examination. HEENT: Head; normocephalic, atraumatic. Eyes; pupils are equal, round, and reactive to light bilaterally. Extraocular movements are intact bilaterally. Throat; no evidence of erythema or exudates in the posterior pharynx. Has poor dentition. NECK: Supple. Good range of motion. PULMONARY: Clear to auscultation bilaterally. No wheezing, no rales, no rhonchi, no crackles appreciated. CARDIOVASCULAR: Positive S1, S2. No murmurs, rubs, or gallops appreciated. ABDOMEN: Soft, nondistended, and nontender to palpation. Bowel sounds present. MUSCULOSKELETAL: Strength is 5/5 throughout. No evidence of any muscle deficits on examination. No weakness appreciated. NEUROLOGIC: Cranial nerves 2 through 12 grossly intact. No evidence of any neurological deficits on exam. SKIN: Intact. Warm to touch. Good cap refill. PSYCHIATRIC: Normal affect and mood. EXTREMITIES: 3+ pedal edema in bilateral lower extremities. LABORATORY FINDINGS: Show white count 7.3, hemoglobin 6.2, hematocrit is 19, platelets of 176. Coagulation; PT 14, INR 1.08, PTT 27.6. Chemistry; sodium was 140, potassium 3.8, chloride 114, bicarb 17, anion gap of 12, BUN 50, creatinine 6.9, glucose is 134, phosphorus is 5.9, magnesium is 1.7, calcium is 7.9, iron saturation 28%, vitamin B12 742, intact PTH is pending. C-ANCA, p-ANCA, double-stranded DNA, C3, C4, free kappa/lambda light chains were are all pending. Hepatitis panel pending. HIV was negative. MICROBIOLOGY: Blood and urine cultures were negative. DIAGNOSTIC STUDIES: Renal ultrasound shows normal renal ultrasound. Right kidney is 10.4 cm, left kidney is 10.9 cm. No obstruction or hydronephrosis seen. IMPRESSION: 1. End-stage renal disease, likely secondary to diabetic nephropathy and underlying hypertension. 2. Anemia of end-stage renal disease. 3. Secondary hyperparathyroidism. 4. Type 2 diabetes. 5. Hypertension. PLAN: At this time, a right IJ has been placed for temporary hemodialysis. She will receive her first HD treatment today. Blood flow rate 200 mL/minute. Dialysis flow rate 400 mL/minute, 3K bath, 2.5 calcium, ultrafiltration 1 L. We will get blood transfusion during HD today. She will also get mannitol 12.5 g IV before and during treatment. HD treatment #2 is pending for tomorrow. Several serologies are pending. I had a long discussion with the family at bedside and they verbalized understanding, agreed with plan of care. Family is working on trying to see if they can get her some sort of emergency insurance in order for her to get some outpatient HD unit evaluation. MD LISA Bustamante/MIKE /[id number]
--- NOTE | 2019-11-09 17:08 | NUR ---
ST NOTE: Pt in pain, scale of 8, just took pain medication. Pt/family deferring BSE to 11/10/19. Family with pt, awaiting dialysis. Discussed standard swallow precautions. HAndoff to GEORGE Arce
[2019-11-09] MEDS ORDERED: ACETAMINOPHEN/CODEINE 300MG - 30MG TAB PO PRN (18:30)
[2019-11-09] MEDS: AZITHROMYCIN 500MG/NS 250 ML 250 ML IV SCH (19:15)
[2019-11-09] MEDS: CEFTRIAXONE SOD 1 GM/NS 50 ML 50 ML IV SCH (19:15)
[2019-11-09] MEDS ORDERED: MANNITOL 25% 12.5GM/50ML 50 ML ONE ×2 (20:12→20:16)
[2019-11-09] MEDS ORDERED: SODIUM CHLORIDE 0.9% 1000ML 2,000 ML ONE (20:12)
[2019-11-09] MEDS ORDERED: MANNITOL 25% 12.5GM/50 ML VIAL IV PRN (20:30)
[2019-11-09] MEDS ORDERED: HEPARIN SOD (PORCINE) 1000 UNIT/ML SDV IV PRN (20:30)
[2019-11-09] MEDS ORDERED: SODIUM CHLORIDE 0.9% 250ML 750 ML IV PRN (20:30)
[2019-11-09] MEDS ORDERED: SODIUM CHLORIDE 0.9% 1000ML 2,000 ML IV PRN (20:30)
[2019-11-10] VITALS (10 sets, daily range): BP systolic 122–180; BP diastolic 63–80
[2019-11-10] MEDS: ALBUTEROL/IPRATROPIUM 3 ML NEB NEB SCH ×4 (00:50→19:42)
[2019-11-10] MEDS: BUMETANIDE 10 MG in SODIUM CHLORIDE 0.9% 100 ML 60 ML IV SCH ×4 (04:48→22:15)
[2019-11-10 05:39] LABS: BASOPHILS % 0.5 % (0.0-1.0); EOSINOPHILS # (AUTO) 0.1 (0.0-0.4); EOSINOPHILS % 0.8 % (0.0-6.0); HEMATOCRIT 24.9 % (34.2-44.1); HEMOGLOBIN 8.3 g/dL (12.0-16.0); LYMPHOCYTES # (AUTO) 0.5 (1.0-3.2); LYMPHOCYTES % 7.1 % (18.0-39.1); MEAN CORPUSCULAR HEMOGLOBIN 30.5 pg (28-32); MEAN CORPUSCULAR HGB CONC 33.3 g/dL (31-35); MEAN CORPUSCULAR VOLUME 91.5 fL (81-99); MONOCYTES # (AUTO) 0.6 (0.2-0.8); NEUTROPHILS # (AUTO) 5.1 (2.1-6.9); PLATELET COUNT 159 x10e3/uL (140-360); RED BLOOD COUNT 2.72 x10e6/uL (3.6-5.1); RED CELL DISTRIBUTION WIDTH 14.6 % (11.7-14.4)
[2019-11-10 05:57] LABS: ANION GAP 12.6 mmol/L (8-16); CALCIUM 7.9 mg/dL (8.4-10.2); CREATININE, SERUM 5.73 mg/dL (0.57-1.11); MAGNESIUM 1.6 MG/DL (1.3-2.1); PHOSPHORUS 5.1 MG/DL (2.3-4.7); POTASSIUM 3.6 mmol/L (3.5-5.1)
--- NOTE | 2019-11-10 07:20 | NUR ---
PATIENT IN BED RECEIVING NEB TREATMENT, NO DISTRESS NOTED. BED IN LOWER POSITION, CALL LIGHT AT REACH.
[2019-11-10] MEDS: GUAIFENESIN 600MG/DEXTROMETHORPHAN 30MG TABSR PO SCH ×2 (09:20→17:29)
[2019-11-10] MEDS: DOCUSATE SODIUM 100 MG CAP PO SCH ×2 (09:20→17:29)
[2019-11-10] MEDS: SEVELAMER CARBONATE 800 MG TAB PO SCH ×2 (09:21→17:29)
[2019-11-10] MEDS: AMLODIPINE BESYLATE 5 MG TAB PO SCH (09:21)
[2019-11-10] MEDS: SODIUM BICARBONATE 650 MG TAB PO SCH ×2 (09:21→17:29)
--- NOTE | 2019-11-10 11:33 | NUR ---
BED SIDE SWALLOW EVAL COMPLETED. OK TO FEED PATIENT.
--- NOTE | 2019-11-10 14:17 | Progress Note ---
DATE: 11/10/2019 Nephrology Progress Note SUBJECTIVE: The patient is doing well today. She was sitting in her chair. After further investigation, the patient seems to have diabetic retinopathy, as she has seen an eye doctor about a year ago. Also, has peripheral neuropathy. It seems like her underlying renal failure is likely due to diabetic nephropathy due to noncompliance. I did speak with her primary care physician, Dr. Reed and apparently, she has been very noncompliant following up in his clinic. Of note, I am currently receiving the fax with her labs from the last 1 to 2 years. She did receive one HD treatment yesterday, which she tolerated very well. PHYSICAL EXAMINATION: VITAL SIGNS: Temperature is 98.7, pulse 100, respiratory rate is 20, blood pressure 180/75, and pulse ox 95% on room air. GENERAL: Not in acute distress. Alert and oriented x3. Cooperative on examination. HEENT: Head; normocephalic, atraumatic. Eyes; pupils are equal, round, and reactive to light bilaterally. Extraocular movements intact bilaterally. Throat; no evidence of erythema or exudates in the posterior pharynx. Has poor dentition. NECK: Supple. Good range of motion. PULMONARY: Clear to auscultation bilaterally. No wheezing, no rales, no rhonchi, no crackles appreciated. CARDIOVASCULAR: Positive S1 and S2. No murmurs, rubs, or gallops appreciated. ABDOMEN: Soft, nondistended, and nontender to palpation. Bowel sounds present. MUSCULOSKELETAL: Strength is 5/5 throughout. No evidence of any muscle deficits on examination. No weakness appreciated. NEUROLOGIC: Cranial nerves 2 through 12 grossly intact. No evidence of any neurological deficits on exam. SKIN: Intact. Warm to touch. Good cap refill. PSYCHIATRIC: Normal affect and mood. EXTREMITIES: No edema. Good range of motion throughout. LABORATORY DATA: Show white count 6.3, hemoglobin 8.3, hematocrit is 24.9, and platelets of 159. Coagulation; PT 14, INR 1.08, and PTT 27.6. Chemistry; sodium 138, potassium 3.6, chloride 108, bicarb 21, anion gap of 12, BUN is 36, creatinine 5.7, and glucose is 122. Hemoglobin A1c was 5.3. Still pending UPEP and SPEP. Intact PTH was found to be 125. Immunology; C3, C4 within range. [place]/lambda ratio still pending. C-ANCA, p-ANCA, double stranded DNA, and SAVANNA are all pending. Hepatitis panel negative. HIV negative. Group A strep screen is negative. MICROBIOLOGY: Cultures are negative. IMPRESSION: 1. End-stage renal disease, on HD, likely secondary to diabetic nephropathy with underlying peripheral neuropathy and diabetic retinopathy. 2. Anemia of end-stage renal disease. 3. Secondary hyperparathyroidism. 4. Uncontrolled type 2 diabetes. 5. Uncontrolled hypertension. PLAN: At this time, she will receive second treatment of HD today with a blood flow rate 250 mL/minute, dialysis flow rate 500 mL/minute, 3K bath, 2.5 calcium with ultrafiltration 1 to 2 L. She will have a duration of 2.5 hours. She will have HD treatment #3. We will schedule for renal biopsy on . It all seems to be likely diabetic nephropathy, as the patient was very noncompliant at the PCP's office and also has retinopathy and neuropathy. At this time, we are awaiting on several serologies. We are waiting on labs from the PCP's office. We will continue with same plan of care and monitor very closely. MD LISA Bustamante/MIKE /[id number]
--- NOTE | 2019-11-10 15:22 | NUR ---
Nutrition Intervention Note RD Recommendation(s) for Physician: - Continue Renal diet as tolerated, consider 1500 ADA restriction if BG trends up - Continue Nepro BID for adequacy Plan of Care: RD following, monitoring for tolerance and adequacy. Nepro BID - Pt educated 11/09, family educated 11/08. Nutrition reason for involvement: MD Consult- diet education "renal diabetic diet" RD Assessment 11/09: Pt seen per MD consult today for diet education. Pt much more alert today, receptive to diet education. Pt receiving HD tx at time of visit. Pt educated on renal and diabetic restrictions, discussed guidelines and restrictions with pt as she is visually impaired- handouts provided for additonal family members. Daughter at bedside, who was provided with education yesterday, provided good recall of diet restrictions at time of visit. Pt with no questions at this time. Pt reports that she did not follow any diet restrictions prior to admission and that she did not check her BG. Noted hx of DM non-compliance per MD notes. Encouraged diet and supplement intake, pt and daughter verbalized understanding. Will continue to monitor. 11/08: 54 YOF admitted for anemia, renal failure, and pleural effusion. Pt seen today per MST screen. Pt sleeping at time of visit, pt's son and daughter at bedside provided hx. They report pt has had decreased appetite and intake for months, currently eating 2 meals a day with vomiting daily as well as intermittent diarrhea. Pt's daughter pt has experienced taste changes and food aversions recently, but continues to try to eat. Wt hx not available and pt's family does not know UBW, pt appears well nourished. Pt's family receptive to diet education at time of visit, materials provided and recommendations discussed- all questions answered at time of visit. Noted pt s/p non-tunneled dialysis catheter placement this am. Will continue to monitor. Principal Problems/Diagnoses: anemia, renal failure, pleural effusion PMH: HTN, CKD, DM GI: LBM 11/08 Skin: intact, BLE edema per MD notes Labs: (11/09): Na 138, K 3.6, BUN 36, Cr 5.73, Gluc 122, Phos 5.1, Mg 1.6 Meds: bumex drip, zofran, abx, lasix, Na Bicarb, renvela, colace, pepcid Ht: 63 in Wt: 176 lb BMI: 31.17kg/m2 IBW: 115 lb Malnutrition Evaluation (11/09/19) The patient does not meet criteria for a specified degree of malnutrition at this time. Will re-evaluate at follow-up as appropriate. Energy intake: <75% of estimated energy requirements for >3 months Weight loss: LAVERNE, family can not recall wt hx and pt has CKD5 associated fluid gain Fat loss: none, ample skinfold thickness Muscle loss: none, should round, clavicle not visible Supporting Evidence: Fluid accumulation: none Functional Status: not assessed Nutrition Prescription (Diet Order): Renal Estimated Nutritional Needs: 5782-4921 calories/day (22-25 kcal/kg IBW) 63-78 g protein/day (1.2-1.5 g pro/kg IBW) Diet Adequacy: Not meeting calorie needs, Not meeting protein needs Diet Tolerance: tolerating po Diet Education Needs Assessment: Diet education indicated, information provided to pt's son and daughter on 11/08. Pt educated on 11/09. Learner(s): pt Barriers: visually impaired, tired during discussion Cultural/Language Modifications: none Readiness: ready Method: handouts, discussion Topics: DM2 nutrition therapy- CHO sources, CHO counting; ESRD nutrition therapy- K, Na, Phos, protein, fluid Understanding/Compliance: poor Nutrition Care Level: moderate Nutrition Diagnosis: Inadequate energy and protein intake related to CKD as evidenced by N/V/D, taste changes, and decreased po intake. Goal: Patient will meet 75-100% of estimated needs by follow up Progress: progressing Interventions: - Mineral modified diet, Commercial beverage, Survival information, Recommended Modifications Monitoring/Evaluation: -Total energy intake, Total protein intake, Prescription medication, Modified diet, Liquid supplement, Weight change, Ability to recall nutrition goals, Level of knowledge, Self management Signed: Mary Fu RD, LD, CNSC
--- NOTE | 2019-11-10 15:39 | NUR ---
BED SIDE HEMODIALYSIS TREATMENT IN PROGRESS, WILL CONTINUE TO MONITOR.
[2019-11-10] MEDS: FAMOTIDINE 20 MG TAB PO SCH (16:30)
--- NOTE | 2019-11-10 16:32 | NUR ---
BED SIDE HEMODIALYSIS COMPLETED. PER DIALYSIS NURSE, 2L REMOVED. V/S 97.7-91-18-117/67 AND 98% ON RA.
--- NOTE | 2019-11-10 19:26 | NUR ---
Patient received lying in bed. Family at bedside. AAO x 3. Patient had no complaints of pain. No signs of respiratory distress. Bumex drip infusing at 20 cc/hr. Safety measures in place. Patient instructed to call for assistance when needed. Call light within reach.
[2019-11-10] MEDS: CEFTRIAXONE SOD 1 GM/NS 50 ML 50 ML IV SCH (21:44)
[2019-11-10] MEDS: AZITHROMYCIN 500MG/NS 250 ML 250 ML IV SCH (22:15)
[2019-11-11] VITALS (7 sets, daily range): BP systolic 126–178; BP diastolic 64–78
[2019-11-11] MEDS: ALBUTEROL/IPRATROPIUM 3 ML NEB NEB SCH ×4 (00:42→19:00)
[2019-11-11] MEDS: BUMETANIDE 10 MG in SODIUM CHLORIDE 0.9% 100 ML 60 ML IV SCH ×5 (04:30→19:00)
[2019-11-11 05:38] LABS: BASOPHILS % 0.3 % (0.0-1.0); EOSINOPHILS % 0.7 % (0.0-6.0); HEMATOCRIT 25.4 % (34.2-44.1); HEMOGLOBIN 8.5 g/dL (12.0-16.0); LYMPHOCYTES # (AUTO) 0.6 (1.0-3.2); LYMPHOCYTES % 9.7 % (18.0-39.1); MEAN CORPUSCULAR HEMOGLOBIN 30.9 pg (28-32); MEAN CORPUSCULAR HGB CONC 33.5 g/dL (31-35); MEAN CORPUSCULAR VOLUME 92.4 fL (81-99); MONOCYTES # (AUTO) 0.8 (0.2-0.8); MONOCYTES % 14.6 % (4.4-11.3); NEUTROPHILS # (AUTO) 4.3 (2.1-6.9); NEUTROPHILS % 74.4 % (38.7-80.0); PLATELET COUNT 153 x10e3/uL (140-360); RED BLOOD COUNT 2.75 x10e6/uL (3.6-5.1); RED CELL DISTRIBUTION WIDTH 14.9 % (11.7-14.4)
[2019-11-11 06:03] LABS: ANION GAP 11.6 mmol/L (8-16); CALCIUM 7.8 mg/dL (8.4-10.2); CREATININE, SERUM 4.52 mg/dL (0.57-1.11); POTASSIUM 3.6 mmol/L (3.5-5.1)
[2019-11-11] MEDS ORDERED: BISACODYL 5 MG TAB EC PO PRN (06:30)
[2019-11-11] MEDS ORDERED: DIATRIZOATE MEGL/DIATRIZOA SOD 30 ML BTL PO ONE (06:38)
--- NOTE | 2019-11-11 06:49 | NUR ---
Specimen from throat sent to lab for culture
--- NOTE | 2019-11-11 07:00 | NUR ---
Patient resting comfortably. Walking rounds done. Shift report given to oncoming nurse.
[2019-11-11] MEDS: FAMOTIDINE 20 MG TAB PO SCH ×2 (07:30→18:36)
[2019-11-11] MEDS: SEVELAMER CARBONATE 800 MG TAB PO SCH ×2 (08:00→18:36)
[2019-11-11] MEDS: POLYETHYLENE GLYCOL 3350 17 GM PACK PO SCH ×2 (08:49→17:00)
[2019-11-11] MEDS: DOCUSATE SODIUM 100 MG CAP PO SCH ×2 (08:49→18:36)
[2019-11-11] MEDS: GUAIFENESIN 600MG/DEXTROMETHORPHAN 30MG TABSR PO SCH ×2 (08:50→18:36)
[2019-11-11] MEDS: SODIUM BICARBONATE 650 MG TAB PO SCH ×2 (08:50→18:36)
--- NOTE | 2019-11-11 09:27 | Diagnostic Imaging Report ---
EXAM: CT Abdomen and Pelvis WITHOUT intravenous contrast INDICATION: Abdominal pain, vomiting COMPARISON: None. TECHNIQUE: Abdomen and pelvis were scanned utilizing a multidetector helical scanner from the lung base to the pubic symphysis without administration of IV contrast. Coronal and sagittal reformations were obtained. IV CONTRAST: None ORAL CONTRAST: Gastrografin COMPLICATIONS: None RADIATION DOSE: Total DLP: 539 mGy*cm Dose modulation, iterative reconstruction, and/or weight based adjustment of the mA/kV was utilized to reduce the radiation dose to as low as reasonably achievable. FINDINGS: LOWER THORAX: Bibasilar dependent subsegmental atelectasis. Central line minimally visualized. HEPATOBILIARY: No focal hepatic lesions. No biliary ductal dilatation. The gallbladder appears unremarkable. SPLEEN: No splenomegaly. PANCREAS: No focal masses or ductal dilatation. ADRENALS: No adrenal nodules. KIDNEYS/URETERS: No hydronephrosis, stones, or solid mass lesions. PELVIC ORGANS/BLADDER: 5.3 x 3.4 cm left adnexal cystic lesion. PERITONEUM / RETROPERITONEUM: No free air or fluid. LYMPH NODES: No lymphadenopathy. VESSELS: Minimal scattered atherosclerotic calcifications. GI TRACT: No abnormal bowel thickening. No bowel obstruction. Appendix not well visualized, however there are no inflammatory findings in the right lower quadrant to suggest appendicitis. BONES AND SOFT TISSUES: No acute osseous injury. No suspicious lytic or blastic lesions. IMPRESSION: No acute findings in the abdomen or pelvis. 5.3 x 3.4 cm left adnexal cystic lesion. Recommend further evaluation with pelvic ultrasound. Signed by: Ebonie Mathews MD on 11/11/2019 9:24 AM
[2019-11-11] MEDS: AMLODIPINE BESYLATE 5 MG TAB PO SCH (12:57)
--- NOTE | 2019-11-11 15:23 | Consultation ---
DATE OF CONSULTATION: 11/10/2019 Thank you, Dr. Nam for this consultation. HISTORY OF PRESENT ILLNESS: A 54-year-old female with a history of hypertension, chronic kidney disease, currently in hospital with worsening shortness of breath. Initial workup shows fever, anemia, pulmonary edema, bilateral pleural effusion, and pericardial effusion. The patient is currently on hemodialysis. The patient required blood transfusion. She denies history of any GI bleed. The patient being followed with rouge mixer closely. Current hemoglobin and hematocrit improving. PAST MEDICAL HISTORY: Diabetes, hypertension, and chronic kidney disease. SOCIAL HISTORY: . No alcohol or drugs. FAMILY HISTORY: Positive for diabetes and heart disease. ALLERGIES: NKDA. MEDICATION LIST: Reviewed. REVIEW OF SYSTEMS: Twelve-point review as per the HPI. PHYSICAL EXAMINATION: GENERAL: Alert, awake, and communicative. HEENT: Normocephalic and atraumatic. Sclerae are pale. Conjunctivae clear. NECK: Supple. CHEST: Decreased breath sounds at the bases. ABDOMEN: Soft. EXTREMITIES: No edema. LABS AND IMAGING: Reviewed. ASSESSMENT: The patient with history of multiple medical conditions include chronic kidney disease and profound anemia, admitted with worsening shortness of breath. Workup shows cardiomegaly, pulmonary congestion, bilateral pleural effusion, and pericardial effusion. The patient's hemoglobin was 5. Symptomatic anemia. The patient has worsening anemia. Hemoglobin 5 at admission. Anemia workup is consistent with anemia of chronic disease and iron deficiency anemia. She received blood transfusion. Hemoglobin improved. RECOMMENDATIONS: Continue the patient on erythropoietin treatment and iron infusion treatment. Monitor CBC. Avoid frequent blood draw. GI follow up as outpatient. We will follow the patient closely. MD GUY Gonzalez/MODL /[id number]
[2019-11-11] MEDS: CEFTRIAXONE SOD 1 GM/NS 50 ML 50 ML IV SCH (18:36)
[2019-11-11] MEDS: AZITHROMYCIN 500MG/NS 250 ML 250 ML IV SCH (19:14)
[2019-11-12] VITALS (9 sets, daily range): BP systolic 137–173; BP diastolic 71–86
[2019-11-12] MEDS: BUMETANIDE 10 MG in SODIUM CHLORIDE 0.9% 100 ML 60 ML IV SCH ×3 (00:25→11:02)
[2019-11-12] MEDS: ALBUTEROL/IPRATROPIUM 3 ML NEB NEB SCH ×4 (00:40→19:30)
[2019-11-12 06:05] LABS: BASOPHILS % 0.4 % (0.0-1.0); EOSINOPHILS % 0.7 % (0.0-6.0); HEMATOCRIT 25.7 % (34.2-44.1); HEMOGLOBIN 8.3 g/dL (12.0-16.0); LYMPHOCYTES % 17.2 % (18.0-39.1); MEAN CORPUSCULAR HEMOGLOBIN 30.4 pg (28-32); MEAN CORPUSCULAR HGB CONC 32.3 g/dL (31-35); MEAN CORPUSCULAR VOLUME 94.1 fL (81-99); MONOCYTES # (AUTO) 0.7 (0.2-0.8); MONOCYTES % 13.2 % (4.4-11.3); NEUTROPHILS # (AUTO) 3.7 (2.1-6.9); PLATELET COUNT 154 x10e3/uL (140-360); RED BLOOD COUNT 2.73 x10e6/uL (3.6-5.1)
[2019-11-12 06:18] LABS: ANION GAP 13.5 mmol/L (8-16); CALCIUM 8.1 mg/dL (8.4-10.2); CREATININE, SERUM 4.45 mg/dL (0.57-1.11); POTASSIUM 3.5 mmol/L (3.5-5.1)
--- NOTE | 2019-11-12 07:00 | NUR ---
bedside report done. pt is alert resting in bed, no s/s of distress. call light within reach and instructed pt to call RN for help. family member is at the bedside
[2019-11-12] MEDS: POLYETHYLENE GLYCOL 3350 17 GM PACK PO SCH ×2 (09:00→17:00)
[2019-11-12] MEDS: SEVELAMER CARBONATE 800 MG TAB PO SCH ×2 (09:24→18:12)
[2019-11-12] MEDS: FAMOTIDINE 20 MG TAB PO SCH ×2 (09:24→18:12)
[2019-11-12] MEDS: SODIUM BICARBONATE 650 MG TAB PO SCH ×2 (09:24→18:12)
[2019-11-12] MEDS: DOCUSATE SODIUM 100 MG CAP PO SCH ×2 (09:24→18:12)
[2019-11-12] MEDS: GUAIFENESIN 600MG/DEXTROMETHORPHAN 30MG TABSR PO SCH ×2 (09:24→18:12)
[2019-11-12] MEDS: AMLODIPINE BESYLATE 5 MG TAB PO SCH (09:24)
--- NOTE | 2019-11-12 13:15 | NUR ---
Dr. Higginbotham at the bedside and discussed with the patient the need for a kidney biopsy, questions/concerns addressed by doctor. it was also discussed that the patient will need outpatient HD and that the temporary HD catheter will need to be removed and a permanent tunneled cath placed. pt agreed with care. RN will provide further patient education on both procedures and obtain consents. the pt's family member was at the bedside.
--- NOTE | 2019-11-12 14:50 | NUR ---
discussed renal biopsy and placement of tunneled HD cath with patient. education material left with pt, questions/concerns addressed. consent forms were signed. family member at the bedside. encouraged patient to feel free to ask any questions they may have.
--- NOTE | 2019-11-12 15:13 | Progress Note ---
DATE: 11/12/2019 Nephrology Progress Note SUBJECTIVE: The patient is doing well today with no complaints. She has very minimal urine output despite being on Bumex. Bumex drip will be discontinued. All the serologies performed seem to be negative at this time. I had put in order for IR as well as main Interventional Radiology to put a tunneled catheter as well as a renal biopsy. I discussed risks and benefits with the patient at bedside. She verbalized understanding. PHYSICAL EXAMINATION: VITAL SIGNS: She is afebrile, normotensive, respiratory rate is good. GENERAL: Not in acute distress. Alert and oriented x3. Cooperative on examination. HEENT: Head; normocephalic, atraumatic. Eyes; pupils are equal, round, and reactive to light bilaterally. Extraocular movements intact bilaterally. Throat; no evidence of erythema or exudates in the posterior pharynx. Has poor dentition. NECK: Supple. Good range of motion. PULMONARY: Clear to auscultation bilaterally. No wheezing, no rales, no rhonchi, no crackles appreciated. CARDIOVASCULAR: Positive S1 and S2. No murmurs, rubs, or gallops appreciated. ABDOMEN: Soft, nondistended, and nontender to palpation. Bowel sounds present. MUSCULOSKELETAL: Strength is 5/5 throughout. No evidence of any muscle deficits on examination. No weakness appreciated. NEUROLOGIC: Cranial nerves 2 through 12 grossly intact. No evidence of any neurological deficits on exam. SKIN: Intact. Warm to touch. Good cap refill. PSYCHIATRIC: Normal affect and mood. EXTREMITIES: No edema. Good range of motion throughout. LABORATORY DATA: Show CBC, hemoglobin 8.3. Chemistry shows a creatinine of 4.4, still no change from yesterday with creatinine of 4.5 despite having hemodialysis. Rest of the electrolytes are stable. Her GFR is still 10. Her M-spike was negative. Her free kappa/lambda chain are within normal range. PTH is 125. C3, C4 all noted normal. P-ANCA, c-ANCA, SAVANNA all negative. Double-stranded DNA was negative. Hepatitis and HIV were negative. IMPRESSION: 1. End-stage renal disease, likely now on HD secondary to diabetic nephropathy, has underlying neuropathy and diabetic retinopathy. 2. Anemia of end-stage renal disease. 3. Secondary hyperparathyroidism. 4. Uncontrolled type 2 diabetes. 5. Controlled hypertension. PLAN: At this time, the patient received hemodialysis treatment #3 yesterday. We will schedule for HD treatment #4 tomorrow full schedule. We also consulted an IR to place a tunneled dialysis catheter as well as a renal biopsy. Her renal function does not seem to be any recovery at this time. It seems to be more chronic in nature. I did review her labs from her clinic, PCP's office. Back in September of 2018, her creatinine is like around 1.2 to 1.3. Back in January of 2019, her creatinine was around 1.1 and 1.2, but there is no labs between January of 2019 till now November of 2019, except there was some labs at the PCP's office this month that showed an elevated creatinine around approximately 5 to 6. At this time, something has happened over the last several months, which we do not have labs to confirm to see what the etiology happen. My guess is that this is likely to be diabetic nephropathy. At this time, I did order a renal biopsy as well as a tunneled dialysis catheter to be placed by IR tomorrow. She will also have hemodialysis #4 tomorrow. Get a.m. labs. Monitor very closely. Stop Bumex drip, as she is making very minimal urine output. I put a case management order to arrange for outpatient hemodialysis at the dialysis unit. MD LISA Bustamante/MIKE /[id number]
--- NOTE | 2019-11-12 16:35 | NUR ---
specimen cup provided to patient for collection of urine. instructed pt to call RN when the specimen is ready so it can be taken to lab. no BM yet to collect for occult stool that was ordered
--- NOTE | 2019-11-12 16:45 | NUR ---
MET W THE PT AND HER SON AT THE BEDSIDE TO DISCUSS CHOICE FOR OUTPT HD. PT AGREED TO [facility]. CHOICE LETTER WAS SIGNED AND COPY PLACED IN THE CHART.
--- NOTE | 2019-11-12 17:07 | NUR ---
FAXED CLINICALS FOR DIALYSIS CHAIR TO [facility] [phone]
--- NOTE | 2019-11-12 19:20 | NUR ---
Patient received sitting up in bed. Son at bedside. AAO x 3. Patient had no complaints of pain, discomfort . No signs of respiratory distress. Patient reminded of NPO status after midnight for upcoming surgical procedures. Call light within reach.
[2019-11-12] MEDS: CEFTRIAXONE SOD 1 GM/NS 50 ML 50 ML IV SCH ×2 (20:00→23:00)
--- NOTE | 2019-11-12 20:10 | NUR ---
Urine specimen sent to lab for analysis.
[2019-11-12 20:16] LABS: CREATININE,URINE RANDOM 60.87 mg/dL (47-110)
[2019-11-12 20:20] LABS: BILIRUBIN,URINE NEGATIVE (NEGATIVE); CLARITY,URINE CLOUDY (CLEAR); COLOR,URINE RED (YELLOW); KETONES,URINE NEGATIVE (NEGATIVE); LEUKOCYTE ESTERASE ,URINE NEGATIVE (NEGATIVE); NITRITE,URINE NEGATIVE (NEGATIVE); PROTEIN,URINE DIPSTICK NEGATIVE (NEGATIVE); URINE UROBILINOGEN 0.2 mg/dL (0.2 - 1)
[2019-11-12 20:21] LABS: BACTERIA,URINE FEW /HPF; RBC,URINE >50 /HPF (0-5)
[2019-11-12 20:42] LABS: TOTAL PROTEIN, URINE 859.2 mg/dL (1-14)
[2019-11-12] MEDS: AZITHROMYCIN 500MG/NS 250 ML 250 ML IV SCH (20:54)
[2019-11-13] VITALS (8 sets, daily range): BP systolic 118–167; BP diastolic 58–76
[2019-11-13] MEDS: ALBUTEROL/IPRATROPIUM 3 ML NEB NEB SCH ×4 (01:00→19:00)
[2019-11-13 06:30] LABS: ANION GAP 13.3 mmol/L (8-16); CALCIUM 7.8 mg/dL (8.4-10.2); CREATININE, SERUM 5.41 mg/dL (0.57-1.11); POTASSIUM 3.3 mmol/L (3.5-5.1)
--- NOTE | 2019-11-13 07:00 | NUR ---
bedside report done. pt is alert oob in the restroom. family member is at the bedside. call light placed in bed and instructed the family member to call RN for help if needed
--- NOTE | 2019-11-13 07:06 | NUR ---
Walking rounds done. Patient resting comfortably. BBSR given to oncoming nurse.
[2019-11-13] MEDS: FAMOTIDINE 20 MG TAB PO SCH ×2 (07:30→16:30)
[2019-11-13] MEDS: SEVELAMER CARBONATE 800 MG TAB PO SCH ×2 (08:00→17:00)
[2019-11-13] MEDS: AMLODIPINE BESYLATE 5 MG TAB PO SCH (09:00)
[2019-11-13] MEDS: DOCUSATE SODIUM 100 MG CAP PO SCH ×2 (09:00→16:45)
[2019-11-13] MEDS: SODIUM BICARBONATE 650 MG TAB PO SCH ×2 (09:00→16:46)
[2019-11-13] MEDS: GUAIFENESIN 600MG/DEXTROMETHORPHAN 30MG TABSR PO SCH ×2 (09:00→16:46)
[2019-11-13] MEDS: POLYETHYLENE GLYCOL 3350 17 GM PACK PO SCH ×2 (09:00→16:46)
--- NOTE | 2019-11-13 09:39 | NUR ---
Nutrition Intervention Note RD Recommendation(s) for Physician: - Continue Renal diet as tolerated, consider 1500 ADA restriction if BG trends up - Continue Nepro BID for adequacy -Continue bowel regimen per MD if medically feasible. Plan of Care: RD following, monitoring for tolerance and adequacy. Nepro BID - Pt educated 11/09, family educated 11/08. Nutrition reason for involvement: f/u RD Assessment 11/12: Follow up: Pt was seen resting in bed, with family at bedside. The pt reports her appetite has improved, 50-100% of her meals has been consumed per meal assessment. Pt reported having some nausea and has not had a BM yet. Pt reported she does not like the Nepro supplement but is willing to keep it on her trays in case she decides she would like to try it again. Pt had no other questions or concerns regarding diet. Pt received dialysis yesterday. Pt is NPO today for tunnel catheter and renal biopsy placed by IR. Will continue to monitor, 11/09: Pt seen per MD consult today for diet education. Pt much more alert today, receptive to diet education. Pt receiving HD tx at time of visit. Pt educated on renal and diabetic restrictions, discussed guidelines and restrictions with pt as she is visually impaired- handouts provided for additonal family members. Daughter at bedside, who was provided with education yesterday, provided good recall of diet restrictions at time of visit. Pt with no questions at this time. Pt reports that she did not follow any diet restrictions prior to admission and that she did not check her BG. Noted hx of DM non-compliance per MD notes. Encouraged diet and supplement intake, pt and daughter verbalized understanding. Will continue to monitor. 11/08: 54 YOF admitted for anemia, renal failure, and pleural effusion. Pt seen today per MST screen. Pt sleeping at time of visit, pt's son and daughter at bedside provided hx. They report pt has had decreased appetite and intake for months, currently eating 2 meals a day with vomiting daily as well as intermittent diarrhea. Pt's daughter pt has experienced taste changes and food aversions recently, but continues to try to eat. Wt hx not available and pt's family does not know UBW, pt appears well nourished. Pt's family receptive to diet education at time of visit, materials provided and recommendations discussed- all questions answered at time of visit. Noted pt s/p non-tunneled dialysis catheter placement this am. Will continue to monitor. Principal Problems/Diagnoses: anemia, renal failure, pleural effusion PMH: HTN, CKD, DM GI: LBM 11/08 Skin: intact, No edema per MD notes Labs: 11/12: K 3.3, BUN 34, Creat 5.41, Ca 7.8 (11/09): Na 138, K 3.6, BUN 36, Cr 5.73, Gluc 122, Phos 5.1, Mg 1.6 Meds: bumex drip, zofran, abx, lasix, Na Bicarb, renvela, colace, pepcid, miralax Ht: 63 in Wt: 176 lb BMI: 31.17kg/m2 IBW: 115 lb Malnutrition Evaluation (11/09/19) The patient does not meet criteria for a specified degree of malnutrition at this time. Will re-evaluate at follow-up as appropriate. Energy intake: <75% of estimated energy requirements for >3 months Weight loss: LAVERNE, family can not recall wt hx and pt has CKD5 associated fluid gain Fat loss: none, ample skinfold thickness Muscle loss: none, should round, clavicle not visible Supporting Evidence: Fluid accumulation: none Functional Status: not assessed Nutrition Prescription (Diet Order): npo Estimated Nutritional Needs: 3387-6667 calories/day (22-25 kcal/kg IBW) 63-78 g protein/day (1.2-1.5 g pro/kg IBW) Diet Adequacy: meeting calorie needs, meeting protein needs Diet Tolerance: tolerating po Diet Education Needs Assessment: Diet education indicated, information provided to pt's son and daughter on 11/08. Pt educated on 11/09. Learner(s): pt Barriers: visually impaired, tired during discussion Cultural/Language Modifications: none Readiness: ready Method: handouts, discussion Topics: DM2 nutrition therapy- CHO sources, CHO counting; ESRD nutrition therapy- K, Na, Phos, protein, fluid Understanding/Compliance: poor Nutrition Care Level: moderate Nutrition Diagnosis: Inadequate energy and protein intake related to CKD as evidenced by N/V/D, taste changes, and decreased po intake. Goal: Patient will meet 75-100% of estimated needs by follow up Progress: progressing Interventions: - Mineral modified diet, Commercial beverage, Survival information, Recommended Modifications Monitoring/Evaluation: -Total energy intake, Total protein intake, Prescription medication, Modified diet, Liquid supplement, Weight change, Ability to recall nutrition goals, Level of knowledge, Self management Signed: Trupti Sparks RD, LD
--- NOTE | 2019-11-13 12:00 | NUR ---
CALL RECEIVED FROM MYRON Marie [facility] @ [phone] REQUESTING INFO FOR PLACEMENT. MET W PT AND DTR AT THE BEDSIDE. PROVIDED INFO TO MYRON. STATES SHE NEEDS THE FATHER'S SOCIAL SECURITY #. THE DTR CALLED HER FATHER, BUT NO ANSWER. GAVE PT'S DTR MYRON MY CARD TO CALL IF HER FATHER CONTACTS HER. CM ALSO TOOK FATHER'S INFO; MARYCHUY GILMAN @ [phone].
--- NOTE | 2019-11-13 12:02 | Progress Note ---
DATE: SUBJECTIVE: The patient seen and examined today. The patient appears comfortable. Clinical condition is improving. OBJECTIVE: GENERAL: Alert, awake, and communicative. HEENT: Normocephalic and atraumatic. Sclerae are pale. Conjunctivae clear. NECK: Supple. CHEST: Clear to auscultation. CARDIOVASCULAR: Regular rate and rhythm. ABDOMEN: Soft. EXTREMITIES: No edema. LABORATORY DATA: Lab and imaging reviewed. ASSESSMENT AND PLAN: The patient with history of severe anemia and renal failure. Clinical condition is improving. Current count is stable. Continue the supportive treatment. Monitor CBC. We will monitor the patient very closely. MD GUY Gonzalez/MODL /[id number]
--- NOTE | 2019-11-13 12:20 | NUR ---
RECEIVED CALL BACK FROM PT'S DTR, MYRON Marie FATHER'S SS #. CALL TO [facility] @ [phone]. MYRON WAS NOT AVAILABLE. LEFT DEEPAK Marie CONTACT INFO.
[2019-11-13] MEDS: HYDRALAZINE HCL 20 MG/ML VIAL IV PRN (12:45)
[2019-11-13] MEDS ORDERED: FENTANYL CITRATE/PF 100MCG/2 ML INJ ONE (13:27)
[2019-11-13] MEDS ORDERED: MIDAZOLAM HCL 2 MG/2 ML VIAL ONE (13:27)
[2019-11-13] MEDS ORDERED: LIDOCAINE HCL 1% LOCAL INJ 20 ML VIAL ONE (13:36)
[2019-11-13] MEDS ORDERED: SODIUM CHLORIDE 0.9% 250ML 250 ML ONE (13:36)
--- NOTE | 2019-11-13 13:36 | NUR ---
pt left unit for IR procedure
[2019-11-13] MEDS ORDERED: HEPARIN SOD (PORCINE) 1000 UNIT/ML SDV ONE (13:49)
[2019-11-13] MEDS ORDERED: HEPARIN SOD (PORCINE) 1000 UNIT/ML SDV IV PRN (16:00)
[2019-11-13] MEDS ORDERED: ALBUMIN 25% 12.5GM 0.25 GM/ML BTL IV PRN (16:00)
[2019-11-13] MEDS ORDERED: SODIUM CHLORIDE 0.9% 250ML 500 ML IV PRN (16:00)
--- NOTE | 2019-11-13 16:09 | Diagnostic Imaging Report ---
Tunneled dialysis catheter placement, 11/13/2019. History: ESRD. Comparison: None available. [employer] Former Supervisor: Dr. Poe. Medication: 5 cc of 1% lidocaine without epinephrine. Conscious sedation: 1 mg Versed, 50 mcg fentanyl IV. Physician intra-service sedation time: 30 minutes. EBL: < 2 cc. Fluoro time: 0.8 min. Fluoroscopy dose (DAP): 5.5 cGy-cm2. Specimen: None. Technique: After informed consent and timeout procedure, the access site was prepped and draped with the standard maximal sterile barrier technique. The skin was anesthetized with lidocaine. A 0.035-in. wire was advanced through the existing temporary right IJ dialysis catheter into the right atrium. The old catheter was removed and a dilator was placed. The right chest was further anesthetized with lidocaine to form the subcutaneous tunnel. The catheter was advanced through the tunnel. The tract was dilated. A peel-away sheath was placed. A 14.5 Colombian 19 cm Palindrome catheter was placed into the vessel via the peel-away sheath, which was then removed. The catheter was secured with suture. The neck incision was closed with resorbable suture. Both ports demonstrated normal aspiration and flushing. Dressing was applied. The patient tolerated the procedure well without evidence of complication. Postprocedure image demonstrates the line to terminate in the superior right atrium. IMPRESSION: Successful tunneled dialysis catheter placement with fluoroscopic guidance guidance and conscious sedation. Catheter is ready for immediate use. Signed by: Ronaldo Poe on 11/13/2019 4:06 PM
--- NOTE | 2019-11-13 19:15 | NUR ---
Patient received lying in bed; undergoing dialysis. Son at bedside. No acute distress noted. Call light within reach.
--- NOTE | 2019-11-13 20:20 | NUR ---
Dialysis complete. 3L removed.
[2019-11-13] MEDS: AZITHROMYCIN 500MG/NS 250 ML 250 ML IV SCH (20:30)
[2019-11-13] MEDS: CEFTRIAXONE SOD 1 GM/NS 50 ML 50 ML IV SCH (22:56)
[2019-11-14] VITALS (7 sets, daily range): BP systolic 126–164; BP diastolic 60–77
[2019-11-14] MEDS: ALBUTEROL/IPRATROPIUM 3 ML NEB NEB SCH ×4 (01:00→19:55)
[2019-11-14 06:42] LABS: BASOPHILS % 0.4 % (0.0-1.0); EOSINOPHILS # (AUTO) 0.1 (0.0-0.4); EOSINOPHILS % 2.1 % (0.0-6.0); HEMATOCRIT 26.4 % (34.2-44.1); HEMOGLOBIN 8.8 g/dL (12.0-16.0); LYMPHOCYTES # (AUTO) 0.5 (1.0-3.2); LYMPHOCYTES % 11.1 % (18.0-39.1); MEAN CORPUSCULAR HGB CONC 33.3 g/dL (31-35); MONOCYTES # (AUTO) 0.5 (0.2-0.8); MONOCYTES % 11.5 % (4.4-11.3); NEUTROPHILS # (AUTO) 3.5 (2.1-6.9); NEUTROPHILS % 74.5 % (38.7-80.0); PLATELET COUNT 154 x10e3/uL (140-360); RED BLOOD COUNT 2.84 x10e6/uL (3.6-5.1); RED CELL DISTRIBUTION WIDTH 13.4 % (11.7-14.4)
[2019-11-14 07:00] LABS: ANION GAP 9.9 mmol/L (8-16); CALCIUM 8.2 mg/dL (8.4-10.2); CREATININE, SERUM 3.69 mg/dL (0.57-1.11); POTASSIUM 3.9 mmol/L (3.5-5.1)
--- NOTE | 2019-11-14 07:30 | NUR ---
The pt. was received from the off-going nurse in bed asleep. Her bed rails are up times x2 with alarm engaged.
[2019-11-14] MEDS: SEVELAMER CARBONATE 800 MG TAB PO SCH ×2 (07:53→17:48)
[2019-11-14] MEDS: FAMOTIDINE 20 MG TAB PO SCH ×2 (07:53→17:48)
[2019-11-14] MEDS: DOCUSATE SODIUM 100 MG CAP PO SCH ×2 (08:56→17:00)
[2019-11-14] MEDS: GUAIFENESIN 600MG/DEXTROMETHORPHAN 30MG TABSR PO SCH ×2 (08:57→17:48)
[2019-11-14] MEDS: POLYETHYLENE GLYCOL 3350 17 GM PACK PO SCH ×2 (08:57→17:00)
[2019-11-14] MEDS: SODIUM BICARBONATE 650 MG TAB PO SCH ×2 (08:57→17:48)
[2019-11-14] MEDS: AMLODIPINE BESYLATE 5 MG TAB PO SCH (08:57)
--- NOTE | 2019-11-14 14:22 | Progress Note ---
DATE: Nephrology Progress Note SUBJECTIVE: The patient is doing well today with no complaints. Had dialysis yesterday. We could not do a renal biopsy yesterday due to IR does not have the equipment for, but will have the equipment on Saturday for renal biopsy. PHYSICAL EXAMINATION: VITAL SIGNS: Temperature 99.3, pulse 97, respiratory rate is 20, blood pressure 142/63, pulse ox 93% on room air. GENERAL: Not in acute distress. Alert and oriented x3. Cooperative on examination. HEENT: Head; normocephalic, atraumatic. Eyes; pupils are equal, round, and reactive to light bilaterally. Extraocular movements intact bilaterally. Throat; no evidence of erythema or exudates in the posterior pharynx. Has poor dentition. NECK: Supple. Good range of motion. PULMONARY: Clear to auscultation bilaterally. No wheezing, no rales, no rhonchi, no crackles appreciated. CARDIOVASCULAR: Positive S1 and S2. No murmurs, rubs, or gallops appreciated. ABDOMEN: Soft, nondistended, and nontender to palpation. Bowel sounds present. MUSCULOSKELETAL: Strength is 5/5 throughout. No evidence of any muscle deficits on examination. No weakness appreciated. NEUROLOGIC: Cranial nerves 2 through 12 grossly intact. No evidence of any neurological deficits on exam. SKIN: Intact. Warm to touch. Good cap refill. PSYCHIATRIC: Normal affect and mood. EXTREMITIES: No edema. Good range of motion throughout. LABORATORY FINDINGS: Show white count is 4.7, hemoglobin 8.8, hematocrit 26, platelets of 154. Chemistry, reviewed, stable. Creatinine was 3.6, but this is post dialysis, repeat chemistry in the morning. Urine protein to creatinine showed evidence of 14 g, proteinuria, still several other serologies are pending. Callaway lambda ratio is 1.5, which in normal range. P-ANCA, C-ANCA, SAVANNA were all negative. Hepatitis and HIV were all negative. IMPRESSION: 1. End-stage renal disease on dialysis secondary to diabetic nephropathy with peripheral neuropathy and diabetic retinopathy. 2. Anemia of end-stage renal disease. 3. Secondary hyperparathyroidism. 4. Uncontrolled type 2 diabetes. 5. Uncontrolled hypertension. PLAN: At this time, she had HD treatment #4 on yesterday. Her next treatment will be on Saturday. Renal biopsy on Saturday. She was unable to perform a renal biopsy on yesterday due to equipment not available. Case Management has been consulted for HD unit as an outpatient. Plan is to hopefully go to [facility] for outpatient HD treatment. We will monitor very closely. Get a.m. labs. MD LISA Bustamante/MIKE /[id number]
[2019-11-14] MEDS: AZITHROMYCIN 500MG/NS 250 ML 250 ML IV SCH (20:33)
[2019-11-15] VITALS (9 sets, daily range): BP systolic 139–155; BP diastolic 66–74
[2019-11-15] MEDS: CEFTRIAXONE SOD 1 GM/NS 50 ML 50 ML IV SCH ×2 (00:08→22:46)
[2019-11-15] MEDS: ALBUTEROL/IPRATROPIUM 3 ML NEB NEB SCH ×4 (01:45→19:00)
[2019-11-15 06:46] LABS: ANION GAP 12.3 mmol/L (8-16); CALCIUM 7.6 mg/dL (8.4-10.2); CREATININE, SERUM 5.28 mg/dL (0.57-1.11); POTASSIUM 3.3 mmol/L (3.5-5.1)
--- NOTE | 2019-11-15 07:05 | NUR ---
bedside report received. pt is sleeping in bed, no s/s of distress.call light within reach and family member at the bedside
[2019-11-15] MEDS: POLYETHYLENE GLYCOL 3350 17 GM PACK PO SCH ×2 (08:44→17:00)
[2019-11-15] MEDS: DOCUSATE SODIUM 100 MG CAP PO SCH ×2 (08:44→18:23)
[2019-11-15] MEDS: FAMOTIDINE 20 MG TAB PO SCH ×3 (08:44→18:22)
[2019-11-15] MEDS: GUAIFENESIN 600MG/DEXTROMETHORPHAN 30MG TABSR PO SCH ×2 (08:44→18:23)
[2019-11-15] MEDS: SEVELAMER CARBONATE 800 MG TAB PO SCH ×2 (08:44→18:23)
[2019-11-15] MEDS: SODIUM BICARBONATE 650 MG TAB PO SCH ×2 (08:44→18:23)
[2019-11-15] MEDS: AMLODIPINE BESYLATE 5 MG TAB PO SCH (08:44)
[2019-11-15] MEDS ORDERED: ACETAMINOPHEN 325 MG TAB PO PRN (14:45)
[2019-11-15] MEDS: AZITHROMYCIN 500MG/NS 250 ML 250 ML IV SCH (18:23)
[2019-11-15] MEDS ORDERED: SODIUM CHLORIDE 0.9% 250ML 250 ML ONE (19:39)
[2019-11-16] VITALS (9 sets, daily range): BP systolic 125–176; BP diastolic 63–78
[2019-11-16] MEDS: ALBUTEROL/IPRATROPIUM 3 ML NEB NEB SCH ×4 (01:00→19:00)
[2019-11-16] MEDS: HYDRALAZINE HCL 20 MG/ML VIAL IV PRN ×2 (01:19→08:13)
--- NOTE | 2019-11-16 07:00 | NUR ---
received bedside report. pt is oob receiving chlorhex bath prior to kidney biopsy, tech is assisting. no s/s of distress. family member at the bedside. instructed to call RN for help
[2019-11-16] MEDS: FAMOTIDINE 20 MG TAB PO SCH ×4 (07:30→17:58)
[2019-11-16] MEDS: DOCUSATE SODIUM 100 MG CAP PO SCH ×2 (07:50→17:58)
[2019-11-16] MEDS: POLYETHYLENE GLYCOL 3350 17 GM PACK PO SCH ×2 (07:50→17:00)
[2019-11-16] MEDS: SEVELAMER CARBONATE 800 MG TAB PO SCH ×2 (07:50→17:58)
[2019-11-16] MEDS: GUAIFENESIN 600MG/DEXTROMETHORPHAN 30MG TABSR PO SCH ×2 (07:50→17:58)
[2019-11-16] MEDS: SODIUM BICARBONATE 650 MG TAB PO SCH ×2 (07:50→17:58)
[2019-11-16 08:21] LABS: BASOPHILS % 0.2 % (0.0-1.0); EOSINOPHILS # (AUTO) 0.2 (0.0-0.4); EOSINOPHILS % 5.5 % (0.0-6.0); HEMATOCRIT 24.3 % (34.2-44.1); LYMPHOCYTES # (AUTO) 0.8 (1.0-3.2); MEAN CORPUSCULAR HEMOGLOBIN 30.2 pg (28-32); MEAN CORPUSCULAR HGB CONC 32.9 g/dL (31-35); MEAN CORPUSCULAR VOLUME 91.7 fL (81-99); MONOCYTES # (AUTO) 0.4 (0.2-0.8); MONOCYTES % 9.5 % (4.4-11.3); NEUTROPHILS # (AUTO) 2.6 (2.1-6.9); NEUTROPHILS % 64.3 % (38.7-80.0); PLATELET COUNT 123 x10e3/uL (140-360); RED BLOOD COUNT 2.65 x10e6/uL (3.6-5.1); RED CELL DISTRIBUTION WIDTH 13.1 % (11.7-14.4)
[2019-11-16 08:41] LABS: ANION GAP 12.1 mmol/L (8-16); CALCIUM 7.8 mg/dL (8.4-10.2); CREATININE, SERUM 6.01 mg/dL (0.57-1.11); POTASSIUM 3.1 mmol/L (3.5-5.1)
[2019-11-16] MEDS ORDERED: MIDAZOLAM HCL 2 MG/2 ML VIAL ONE (09:21)
[2019-11-16] MEDS ORDERED: FENTANYL CITRATE/PF 100MCG/2 ML INJ ONE (09:21)
--- NOTE | 2019-11-16 09:53 | NUR ---
transporter on unit to take pt to IR for kidney biopsy
[2019-11-16] MEDS: AMLODIPINE BESYLATE 5 MG TAB PO SCH (11:53)
--- NOTE | 2019-11-16 15:02 | Progress Note ---
DATE: Nephrology Progress Note SUBJECTIVE: The patient is doing well today with no complaints. The patient did receive a renal biopsy today. She is also receiving dialysis later today. They work on an outpatient HD unit. PHYSICAL EXAMINATION: VITAL SIGNS: Afebrile. Normotensive. Respiratory rate is good. GENERAL: Not in acute distress. Alert and oriented x3. Cooperative on examination. HEENT: Head; normocephalic, atraumatic. Eyes; pupils are equal, round, and reactive to light bilaterally. Extraocular movements intact bilaterally. Throat; no evidence of erythema or exudates in the posterior pharynx. Has poor dentition. NECK: Supple. Good range of motion. PULMONARY: Clear to auscultation bilaterally. No wheezing, no rales, no rhonchi, no crackles appreciated. CARDIOVASCULAR: Positive S1 and S2. No murmurs, rubs, or gallops appreciated. ABDOMEN: Soft, nondistended, and nontender to palpation. Bowel sounds present. MUSCULOSKELETAL: Strength is 5/5 throughout. No evidence of any muscle deficits on examination. No weakness appreciated. NEUROLOGIC: Cranial nerves 2 through 12 grossly intact. No evidence of any neurological deficits on exam. SKIN: Intact. Warm to touch. Good cap refill. PSYCHIATRIC: Normal affect and mood. EXTREMITIES: No edema. Good range of motion throughout. LABORATORY DATA: Reviewed. Hemoglobin is 8, hematocrit is 24, white count 4, and platelets was found to be 123. Coagulation noted. Chemistry reviewed, shows evidence of worsening renal function with no evidence of any recovery. Several serologies are pending. IMPRESSION: 1. End-stage renal disease, on dialysis secondary to diabetic nephropathy and peripheral neuropathy and diabetic retinopathy. 2. Anemia of end-stage renal disease. 3. Secondary hyperparathyroidism. 4. Uncontrolled type 2 diabetes. 5. Uncontrolled hypertension. PLAN: At this time, HD treatment today. Renal biopsy performed. Await for final pathology results. Await for placement to [facility] for outpatient HD unit. Discussed plan of care with the patient and nursing staff. MD LISA Bustamante/MIKE /[id number]
--- NOTE | 2019-11-16 15:06 | NUR ---
SPOKE WITH BETH AT [facility] [phone], SHE STATES SHE HASN'T SEEN THE CLINICALS SO I RE-FAXED TO [phone]. SPOKE WITH OTHER CM, JESSICA WHOM STATES SHE SPOKE WITH [facility] AT THE COOPERATE OFFICE AND SHE STATES SHE HAD RECEIVED EVERYTHING ON SATURDAY. CALLED [facility] AND LEFT MESSAGE FOR RETURN CALL.
--- NOTE | 2019-11-16 16:44 | Diagnostic Imaging Report ---
PROCEDURE: Ultrasound-guided biopsy Procedural Personnel Attending physician(s): Ebonie Mathews MD Fellow physician(s): None Resident physician(s): None Advanced practice provider(s): None Pre-procedure diagnosis: Acute kidney injury Post-procedure diagnosis: Same Indication: Organ dysfunction Previous biopsy of same target (QCDR): No Additional clinical history: None Complications: No immediate complications. IMPRESSION: Ultrasound-guided nonfocal biopsy of left kidney. Plan: Specimen(s) sent for evaluation. PROCEDURE SUMMARY: - Percutaneous US-guided nonfocal renal biopsy - Additional procedure(s): None PROCEDURE DETAILS: Pre-procedure Reference imaging for biopsy target: None Consent: Informed consent for the procedure including risks, benefits and alternatives was obtained and time-out was performed prior to the procedure. Preparation: The site was prepared and draped using maximal sterile barrier technique including cutaneous antisepsis. Anesthesia/sedation Level of anesthesia/sedation: Moderate sedation (conscious sedation) Anesthesia/sedation administered by: Independent trained observer under attending supervision with continuous monitoring of the patient?s level of consciousness and physiologic status Total intra-service sedation time (minutes): 30 Imaging prior to biopsy The patient was positioned prone. Initial ultrasound was performed. Biopsy target: - Maximal diameter (cm): N/A - Location: Left renal cortex Other findings: None Biopsy Local anesthesia was administered. Under US guidance, the biopsy needle was advanced to the target and biopsy was performed. Coaxial needle: 17 gauge Core needle biopsy device: [employer] Core needle size: 18 gauge Number of core specimens: 3 Needle removal The biopsy needle was removed and a sterile dressing was applied. Tract embolization: Gelfoam slurry Imaging following biopsy Immediate post-biopsy ultrasound was performed. Post-biopsy imaging findings: No hematoma Additional Details Additional description of procedure: None Equipment details: None Specimens removed: Biopsy samples as detailed above Estimated blood loss (mL): Less than 10 Standardized report: [email or web address] Attestation Signer name: Ebonie Mathews MD I attest that I was present for the entire procedure. I reviewed the stored images and agree with the report as written. Signed by: Ebonie Mathews MD on 11/16/2019 4:41 PM
[2019-11-16] MEDS: AZITHROMYCIN 500MG/NS 250 ML 250 ML IV SCH (18:08)
[2019-11-16 20:08] LABS: ALPHA 2 GLOBULIN URINE PEP 10.9 % (.)
[2019-11-16] MEDS: CEFTRIAXONE SOD 1 GM/NS 50 ML 50 ML IV SCH (23:50)
[2019-11-17] VITALS (8 sets, daily range): BP systolic 117–160; BP diastolic 61–77
[2019-11-17] MEDS: ALBUTEROL/IPRATROPIUM 3 ML NEB NEB SCH ×4 (01:00→19:00)
--- NOTE | 2019-11-17 07:00 | NUR ---
BEDSIDE SHIFT REPORT RECEIVED FROM THE MUSTANGER RN. EDUCATED PT ABOUT FALL PRECAUTIONS. PT VERBALIZED UNDERSTANDING. CALL LIGHT WITH IN EASY REACH. INSTRUCTED PT TO USE CALL LIGHT FOR ALL THE NEEDS. BED IS LOW AND LOCKED. SIDE RAILS X2.FAMILY AT BEDSIDE. PT DENIES NEEDS AT THIS TIME.
--- NOTE | 2019-11-17 07:10 | NUR ---
Bedside report and rounds completed with oncoming nurse. Patient in bed with call light within reach. No issues or concerns noted.
--- NOTE | 2019-11-17 07:30 | NUR ---
PAGED DR. BASS AND INFORMED PT K LEVEL 3.1. NO NEW ORDERS RECEIVED.
[2019-11-17] MEDS: SEVELAMER CARBONATE 800 MG TAB PO SCH ×2 (08:30→16:46)
[2019-11-17] MEDS: FAMOTIDINE 20 MG TAB PO SCH ×2 (08:30→16:46)
[2019-11-17] MEDS: POLYETHYLENE GLYCOL 3350 17 GM PACK PO SCH ×2 (09:00→16:47)
[2019-11-17] MEDS: SODIUM BICARBONATE 650 MG TAB PO SCH ×2 (09:44→16:46)
[2019-11-17] MEDS: DOCUSATE SODIUM 100 MG CAP PO SCH ×2 (09:44→16:46)
[2019-11-17] MEDS: GUAIFENESIN 600MG/DEXTROMETHORPHAN 30MG TABSR PO SCH ×2 (09:44→16:46)
[2019-11-17] MEDS: AMLODIPINE BESYLATE 5 MG TAB PO SCH (09:44)
--- NOTE | 2019-11-17 12:00 | NUR ---
PT BLOOD SUGAR 163. INFORMED THE SAME TO JOVANY RICHMOND. NO NEW ORDERS RECEIVED.
--- NOTE | 2019-11-17 15:23 | NUR ---
RECEIVED CALL FROM [facility] PT ACCEPTED AT [facility] ON [address]. CHAIR TIME WILL BE , AND SATURDAY AT 1130 AM, WILL SEND LETTER TO FILE IN CHART AND GIVE TO PATIENT WITH START DATE OF Saturday
--- NOTE | 2019-11-17 16:22 | Progress Note ---
DATE: Nephrology Progress Note SUBJECTIVE: The patient is doing well today with no complaints. Still pending hemodialysis, chair time is scheduled. PHYSICAL EXAMINATION: VITAL SIGNS: Temperature is 97.3, pulse 96, respiratory rate 20, blood pressure , pulse ox 97% on room air. GENERAL: Not in acute distress. Alert and oriented x3. Cooperative on examination. HEENT: Head; normocephalic, atraumatic. Eyes; pupils are equal, round, and reactive to light bilaterally. Extraocular movements intact bilaterally. Throat; no evidence of erythema or exudates in the posterior pharynx. Has poor dentition. NECK: Supple. Good range of motion. PULMONARY: Clear to auscultation bilaterally. No wheezing, no rales, no rhonchi, no crackles appreciated. CARDIOVASCULAR: Positive S1 and S2. No murmurs, rubs, or gallops appreciated. ABDOMEN: Soft, nondistended, and nontender to palpation. Bowel sounds present. MUSCULOSKELETAL: Strength is 5/5 throughout. No evidence of any muscle deficits on examination. No weakness appreciated. NEUROLOGIC: Cranial nerves II through XII grossly intact. No evidence of any neurological deficits on exam. SKIN: Intact. Warm to touch. Good cap refill. PSYCHIATRIC: Normal affect and mood. EXTREMITIES: No edema. Good range of motion throughout. LABORATORY DATA: Labs show CBC within normal range, hemoglobin is 8. Chemistry review shows a potassium 3.1, creatinine is still 6.01, indicative of end-stage disease. IMPRESSION: 1. End-stage renal disease, now on hemodialysis, pending renal biopsy. 2. Anemia of end-stage renal disease. 3. Secondary hyperparathyroidism. PLAN: At this time, still pending renal biopsy. HD scheduled for tomorrow. This is all likely to be diabetic nephropathy. Await final renal biopsy results. Awaiting for an outpatient HD unit, chair time is scheduled. Once accepted, the patient can be discharged and will follow up with the pathology as an outpatient in the clinic. MD LISA Bustamante/MODStuart /[id number]
--- NOTE | 2019-11-17 19:00 | NUR ---
BEDSIDE SHIFT REPORT GIVEN TO THE LEVEL GLASS FORMING MACHINE OPERATOR RN. PT DENIED FURTHER NEEDS.
[2019-11-17] MEDS ORDERED: DEXTROSE 50% SYRINGE 50 ML IV PRN (21:30)
[2019-11-17] MEDS: INSULIN LISPRO 100 UNIT/1 ML 3ML VIAL SQ SCH (21:40)
--- NOTE | 2019-11-17 22:00 | NUR ---
Received report from nurse.
--- NOTE | 2019-11-17 22:09 | NUR ---
Report given to nurse and care transferred. Patient stable, no issues or concerns.
[2019-11-17] MEDS: CEFTRIAXONE SOD 1 GM/NS 50 ML 50 ML IV SCH (22:56)
[2019-11-18] VITALS: BP 160/72
[2019-11-18] MEDS: ALBUTEROL/IPRATROPIUM 3 ML NEB NEB SCH ×3 (01:00→13:00)
[2019-11-18 04:00] VITALS: BP 168/82
[2019-11-18 06:20] LABS: BASOPHILS % 0.2 % (0.0-1.0); EOSINOPHILS # (AUTO) 0.3 (0.0-0.4); EOSINOPHILS % 5.2 % (0.0-6.0); HEMATOCRIT 23.1 % (34.2-44.1); HEMOGLOBIN 7.7 g/dL (12.0-16.0); LYMPHOCYTES # (AUTO) 1.3 (1.0-3.2); LYMPHOCYTES % 27.2 % (18.0-39.1); MEAN CORPUSCULAR HEMOGLOBIN 30.4 pg (28-32); MEAN CORPUSCULAR HGB CONC 33.3 g/dL (31-35); MEAN CORPUSCULAR VOLUME 91.3 fL (81-99); MONOCYTES # (AUTO) 0.4 (0.2-0.8); MONOCYTES % 7.3 % (4.4-11.3); NEUTROPHILS # (AUTO) 2.9 (2.1-6.9); NEUTROPHILS % 59.9 % (38.7-80.0); PLATELET COUNT 133 x10e3/uL (140-360); RED BLOOD COUNT 2.53 x10e6/uL (3.6-5.1); RED CELL DISTRIBUTION WIDTH 12.7 % (11.7-14.4)
[2019-11-18 06:59] LABS: ANION GAP 11.2 mmol/L (8-16); CALCIUM 7.8 mg/dL (8.4-10.2); CREATININE, SERUM 5.42 mg/dL (0.57-1.11); POTASSIUM 3.2 mmol/L (3.5-5.1)
--- NOTE | 2019-11-18 07:00 | NUR ---
BEDSIDE SHIFT REPORT RECEIVED FROM THE SPOUT TENDER RN. EDUCATED PT ABOUT FALL PRECAUTIONS. PT VERBALIZED UNDERSTANDING. CALL LIGHT WITH IN EASY REACH. INSTRUCTED PT TO USE CALL LIGHT FOR ALL THE NEEDS. BED IS LOW AND LOCKED. SIDE RAILS X2. FAMILY MEMBER AT BEDSIDE. PT DENIES NEEDS AT THIS TIME.
[2019-11-18] MEDS: INSULIN LISPRO 100 UNIT/1 ML 3ML VIAL SQ SCH ×3 (07:30→16:30)
[2019-11-18 07:50] VITALS: BP 173/84
[2019-11-18] MEDS: SODIUM BICARBONATE 650 MG TAB PO SCH ×2 (08:25→16:56)
[2019-11-18] MEDS: AMLODIPINE BESYLATE 5 MG TAB PO SCH (08:25)
[2019-11-18] MEDS: FAMOTIDINE 20 MG TAB PO SCH ×2 (08:25→16:56)
[2019-11-18] MEDS: SEVELAMER CARBONATE 800 MG TAB PO SCH ×2 (08:25→16:56)
[2019-11-18] MEDS: DOCUSATE SODIUM 100 MG CAP PO SCH ×2 (08:25→16:56)
[2019-11-18] MEDS: GUAIFENESIN 600MG/DEXTROMETHORPHAN 30MG TABSR PO SCH ×2 (08:25→16:56)
[2019-11-18] MEDS: POLYETHYLENE GLYCOL 3350 17 GM PACK PO SCH ×2 (09:00→16:57)
[2019-11-18 11:56] VITALS: BP 151/81
[2019-11-18 12:52] VITALS: BP 151/81
--- NOTE | 2019-11-18 12:57 | NUR ---
PAGED JOVANY GROUND SERVICE EQUIPMENT MECHANIC AND REPORTED HGB 7.7. NO NEW ORDERS RECEIVED.
--- NOTE | 2019-11-18 14:00 | NUR ---
WOOL HAT HYDRAULICKER AT BEDSIDE.
--- NOTE | 2019-11-18 14:37 | NUR ---
Nutrition Intervention Note RD Recommendation(s) for Physician: - Continue Renal diet as tolerated, consider 1500 ADA restriction if BG trends up - Continue Nepro BID for adequacy -Continue bowel regimen per MD if medically feasible. Plan of Care: RD following, monitoring for tolerance and adequacy. Nepro BID - Pt educated 11/09, family educated 11/08. Nutrition reason for involvement: f/u RD Assessment 11/17: Follow up: Pt was seen about to consume her lunch. She reported her appetite has been good, denied any N/V/C/D/chewing or swallowing issues at this time. Renal biopsy is still pending, HD scheduled for today. The pt has been consuming 50-100% of her meals per EMR. Pt had no other questions or concerns regarding diet at this time. D/c pending. Will continue to monitor. 11/12: Follow up: Pt was seen resting in bed, with family at bedside. The pt reports her appetite has improved, 50-100% of her meals has been consumed per meal assessment. Pt reported having some nausea and has not had a BM yet. Pt reported she does not like the Nepro supplement but is willing to keep it on her trays in case she decides she would like to try it again. Pt had no other questions or concerns regarding diet. Pt received dialysis yesterday. Pt is NPO today for tunnel catheter and renal biopsy placed by IR. Will continue to monitor. 11/09: Pt seen per MD consult today for diet education. Pt much more alert today, receptive to diet education. Pt receiving HD tx at time of visit. Pt educated on renal and diabetic restrictions, discussed guidelines and restrictions with pt as she is visually impaired- handouts provided for additonal family members. Daughter at bedside, who was provided with education yesterday, provided good recall of diet restrictions at time of visit. Pt with no questions at this time. Pt reports that she did not follow any diet restrictions prior to admission and that she did not check her BG. Noted hx of DM non-compliance per MD notes. Encouraged diet and supplement intake, pt and daughter verbalized understanding. Will continue to monitor. 11/08: 54 YOF admitted for anemia, renal failure, and pleural effusion. Pt seen today per MST screen. Pt sleeping at time of visit, pt's son and daughter at bedside provided hx. They report pt has had decreased appetite and intake for months, currently eating 2 meals a day with vomiting daily as well as intermittent diarrhea. Pt's daughter pt has experienced taste changes and food aversions recently, but continues to try to eat. Wt hx not available and pt's family does not know UBW, pt appears well nourished. Pt's family receptive to diet education at time of visit, materials provided and recommendations discussed- all questions answered at time of visit. Noted pt s/p non-tunneled dialysis catheter placement this am. Will continue to monitor. Principal Problems/Diagnoses: anemia, renal failure, pleural effusion PMH: HTN, CKD, DM GI: LBM: no recent BM recorded Skin: intact, No edema per MD notes Labs: 11/17: K 3.2, BUN 29, Creat 5.42, Ca 7.8 11/12: K 3.3, BUN 34, Creat 5.41, Ca 7.8 (11/09): Na 138, K 3.6, BUN 36, Cr 5.73, Gluc 122, Phos 5.1, Mg 1.6 Meds: bumex drip, zofran, abx, lasix, Na Bicarb, renvela, colace, pepcid, miralax Ht: 63 in Wt: 176 lb 11/17: 175 lbs BMI: 31.17kg/m2 IBW: 115 lb Malnutrition Evaluation (11/09/19) The patient does not meet criteria for a specified degree of malnutrition at this time. Will re-evaluate at follow-up as appropriate. Energy intake: <75% of estimated energy requirements for >3 months Weight loss: LAVERNE, family can not recall wt hx and pt has CKD5 associated fluid gain Fat loss: none, ample skinfold thickness Muscle loss: none, should round, clavicle not visible Supporting Evidence: Fluid accumulation: none Functional Status: not assessed Nutrition Prescription (Diet Order): renal DM diet Estimated Nutritional Needs: 9433-3515 calories/day (22-25 kcal/kg IBW) 63-78 g protein/day (1.2-1.5 g pro/kg IBW) Diet Adequacy: meeting calorie needs, meeting protein needs Diet Tolerance: tolerating po Diet Education Needs Assessment: Diet education indicated, information provided to pt's son and daughter on 11/08. Pt educated on 11/09. Learner(s): pt Barriers: visually impaired, tired during discussion Cultural/Language Modifications: none Readiness: ready Method: handouts, discussion Topics: DM2 nutrition therapy- CHO sources, CHO counting; ESRD nutrition therapy- K, Na, Phos, protein, fluid Understanding/Compliance: poor Nutrition Care Level: low- meeting calorie and protein needs Nutrition Diagnosis: Inadequate energy and protein intake related to CKD as evidenced by N/V/D, taste changes, and decreased po intake. Goal: Patient will meet 75-100% of estimated needs by follow up Progress: progressing Interventions: - Mineral modified diet, Commercial beverage, Survival information, Recommended Modifications Monitoring/Evaluation: -Total energy intake, Total protein intake, Prescription medication, Modified diet, Liquid supplement, Weight change, Ability to recall nutrition goals, Level of knowledge, Self management Signed: Trupti Sparks RD, LD
[2019-11-18 15:59] VITALS: BP 126/69
--- NOTE | 2019-11-18 17:23 | Progress Note ---
DATE: 11/18/2019 Nephrology Progress Note SUBJECTIVE: The patient is doing well today with no complaints. She does have a dialysis chair for Saturday of this week. PHYSICAL EXAMINATION: VITAL SIGNS: She is afebrile. Normotensive. Respiratory rate is good. GENERAL: Not in acute distress. Alert and oriented x3. Cooperative on examination. HEENT: Head; normocephalic, atraumatic. Eyes; pupils are equal, round, and reactive to light bilaterally. Extraocular movements intact bilaterally. Throat; no evidence of erythema or exudates in the posterior pharynx. Has poor dentition. NECK: Supple. Good range of motion. PULMONARY: Clear to auscultation bilaterally. No wheezing, no rales, no rhonchi, no crackles appreciated. CARDIOVASCULAR: Positive S1 and S2. No murmurs, rubs, or gallops appreciated. ABDOMEN: Soft, nondistended, and nontender to palpation. Bowel sounds present. MUSCULOSKELETAL: Strength is 5/5 throughout. No evidence of any muscle deficits on examination. No weakness appreciated. NEUROLOGIC: Cranial nerves 2 through 12 grossly intact. No evidence of any neurological deficits on exam. SKIN: Intact. Warm to touch. Good cap refill. PSYCHIATRIC: Normal affect and mood. EXTREMITIES: No edema. Good range of motion throughout. LABORATORY DATA: CBC shows a hemoglobin of 7.7, but stable. Chemistry reviewed, stable. IMPRESSION: 1. End-stage renal disease, on dialysis, Saturday, Saturday, and Saturday, pending renal biopsy. 2. Anemia of end-stage renal disease. 3. Secondary hyperparathyroidism. PLAN: At this time, I am still waiting on a renal biopsy. HD was scheduled for today. She did get dialysis chair for this Saturday and [facility] being admitted under Dr. Bolivar. I am the primary laboratory apparatus glass grinder, but we will work together with Dr. Bolivar on this case. Pending pathology results. I discussed this case also with Dr. Bolivar's VOICE COACH, Sangita, and once the renal biopsy is back, we will go over the case with the patient as well. She will follow up very closely with them as an outpatient and their dialysis unit. I discussed this with the patient to follow up very closely on the pathology results with Dr. Bolivar and his nurse practitioner and she verbalized understanding. MD LISA Bustamante/MIKE /[id number]
--- NOTE | 2019-11-18 17:52 | NUR ---
DIALYSIS COMPLETED. 2.5 L REMOVED PER THE ESTIMATOR PRINTING. INFORMED THE SAME TO JOVANY RICHMOND.
--- NOTE | 2019-11-18 18:30 | NUR ---
JOVANY RICHMOND AT BEDSIDE.
[2019-11-18] MEDS ORDERED: ACETAMINOPHEN325 M1 PO (18:32)
[2019-11-18] MEDS ORDERED: SODIUM BICARBO650 MG PO (18:32)
[2019-11-18] MEDS ORDERED: COLACE100 MG PO (18:32)
--- NOTE | 2019-11-18 18:45 | NUR ---
BEDSIDE SHIFT REPORT GIVEN TO THE LAUNDRY OPERATOR RN. FAMILY AT BEDSIDE. PT DENIED FURTHER NEEDS.
--- NOTE | 2019-11-18 19:40 | NUR ---
Discharge orders received from JOVANY RICHMOND. Discharge instructions given and signed by Patient's son. IV and telemetry discontinued. Transported to private auto via wheelchair. Patient is alert and oriented. Discharge in good condition.
--- NOTE | 2019-11-19 05:00 | Discharge Summary ---
CHIEF COMPLAINT: Shortness of breath with dry cough. PRIMARY CARE PHYSICIAN: Dr. Oneill. HISTORY OF PRESENT ILLNESS: Ms. Johnson is a 54-year-old female, who was admitted with complaints of shortness of breath and dry cough for over a month. She went to her PCP about 1 month prior to admission and he told her to take Robitussin. She denied any fever or sick contacts. Symptoms worsened with activity and lying flat. She said that her PCP told her that she had some kidney problems, but never went into detail. PAST MEDICAL HISTORY: Hypertension and type 2 diabetes mellitus. PAST SURGICAL HISTORY: None. FAMILY HISTORY: Her brother has diabetes. SOCIAL HISTORY: Noncontributory. ALLERGIES: NO KNOWN ALLERGIES. ADMITTING DIAGNOSES: 1. Acute renal failure versus end-stage renal disease. 2. Normocytic anemia. 3. Fluid overload, likely secondary to acute renal failure versus end-stage renal disease. 4. Pericardial effusion, likely secondary to acute renal failure versus end-stage renal disease. DISCHARGE DIAGNOSES: 1. End-stage renal disease, on hemodialysis Saturday, Saturday, Saturday, status post renal biopsy on 11/16/2019. 2. Controlled type 2 diabetes mellitus with end-stage renal disease. 3. Uncontrolled hypertension with end-stage renal disease. 4. Anemia of end-stage renal disease. 5. Ambulatory dysfunction. CONSULTING PHYSICIANS: Include Dr. Jayden Blackmon with Hematology, Dr. Lester Strauss with Cardiology, and Dr. Iván Higginbotham with Nephrology. LABORATORY DATA: On admission; WBC 6.94, hemoglobin 5.6, hematocrit 17.3, and platelet count 176. Sodium 137, potassium 4.0, chloride 113, CO2 of 18, anion gap 10, BUN 46, creatinine 6.79, GFR 6, glucose 135, calcium 8.3, lactic acid 0.9, magnesium 1.7, AST 14, ALT 8, alkaline phosphatase 32, creatine kinase 152. Troponin I 0.048. B-type natriuretic peptide 1342.2. Albumin 2.3. Urine culture was negative. Blood cultures x2 showed no growth after 5 days. Throat culture was negative twice. Chest CT on October showed bilateral pleural effusions, moderate-sized pericardial effusion, bilateral pulmonary atelectasis, focus of pneumonia in the right lower lobe not excluded, hepatomegaly. Chest CT and abdomen, abdomen/pelvis CT showed the aforementioned. She had a renal ultrasound on November 07, which was normal. V/Q lung scan on November 07 showed an intermediate probability for acute pulmonary embolic disease. Scan evidence of parenchymal lung disease in the right lower lobe. Scan evidence of obstructive lung disease. Renal biopsy was obtained on November 15, results are pending. Hepatitis B workup was negative. Hepatitis A IgM antibody and hepatitis C antibody were negative. Negative for HIV. Negative for group A Strep. SAVANNA screen negative. C-ANCA titer less than 1-20, as was the P-ANCA titer and atypical P-ANCA. Cardiac biomarkers x3 sets were within normal limits. TSH 3.183. Today on the day of discharge, WBC is 4.81, hemoglobin 7.7, hematocrit 23.1, and platelets 133. Parathyroid hormone on November 07 was 125. Sodium 140, potassium 3.2, chloride 105, CO2 of 27, BUN 29, creatinine 5.42, estimated GFR 8, glucose 101. Fingerstick blood glucose levels 109, 153, and 127 today. Calcium 7.8. Per Nephrology's note today, still waiting on a renal biopsy. She had 2.5 L removed with hemodialysis today. .S. Renal being admitted under Dr. Bolivar. Dr. Higginbotham is the primary aluminum molding machine operator and he works together with that physician as well as his [employer]. Once the renal biopsy is back, they will go over the case with the patient. She will follow up with Nephrology closely as an outpatient in their dialysis unit. Her nontunneled dialysis catheter was inserted on November 09, 2019, by Interventional Radiology. An echocardiogram done on November 07 had shown estimated ejection fraction 55% to 60%. The patient is seen post dialysis with family at the bedside. No complaints. She is to continue on a renal diabetic diet. Activity level as tolerated. Follow up with her PCP in 1 to 2 weeks. Follow up with Nephrology as directed. She is being discharged with prescriptions for sodium bicarbonate 1300 mg p.o. b.i.d., Colace, and as needed Tylenol. Dictated by Alberto García NP Jevon Nam MD HWP/MODL /[id number]
== END 2019-11-18 19:26 | disposition home or self-care (01) | DRG 682 ==
LOC: ER 13:51 → ERHOLD 17:05 → MED/SURG3 18:35
PROVIDERS: ADMIT Internal Medicine; ATTEND Internal Medicine
PROC: 30233N1 Transfusion of Nonautologous Red Blood Cells into Peripheral Vein, Percutaneous Approach (ICD-10-PCS; 2019-11-08)
PROC: 02HV33Z Insertion of Infusion Device into Superior Vena Cava, Percutaneous Approach (ICD-10-PCS; principal; 2019-11-09)
PROC: B548ZZA Ultrasonography of Superior Vena Cava, Guidance (ICD-10-PCS; 2019-11-09)
PROC: 5A1D70Z Performance of Urinary Filtration, Intermittent, Less than 6 Hours Per Day (ICD-10-PCS; 2019-11-09)
PROC: 5A1D70Z Performance of Urinary Filtration, Intermittent, Less than 6 Hours Per Day (ICD-10-PCS; 2019-11-10)
PROC: 5A1D70Z Performance of Urinary Filtration, Intermittent, Less than 6 Hours Per Day (ICD-10-PCS; 2019-11-11)
PROC: 5A1D70Z Performance of Urinary Filtration, Intermittent, Less than 6 Hours Per Day (ICD-10-PCS; 2019-11-13)
PROC: 5A1D70Z Performance of Urinary Filtration, Intermittent, Less than 6 Hours Per Day (ICD-10-PCS; 2019-11-16)
PROC: 0TB13ZX Excision of Left Kidney, Percutaneous Approach, Diagnostic (ICD-10-PCS; 2019-11-16)
PROC: 5A1D70Z Performance of Urinary Filtration, Intermittent, Less than 6 Hours Per Day (ICD-10-PCS; 2019-11-18)
DX: I12.0 Hypertensive chronic kidney disease with stage 5 chronic kidney disease or end stage renal disease (principal); J18.9 Pneumonia, unspecified organism; N18.6 End stage renal disease; I31.3 Pericardial effusion (noninflammatory); E87.2 Acidosis; N25.81 Secondary hyperparathyroidism of renal origin; D50.0 Iron deficiency anemia secondary to blood loss (chronic); E11.22 Type 2 diabetes mellitus with diabetic chronic kidney disease; I50.9 Heart failure, unspecified; D63.1 Anemia in chronic kidney disease; E83.39 Other disorders of phosphorus metabolism; E11.21 Type 2 diabetes mellitus with diabetic nephropathy; E83.51 Hypocalcemia; E83.42 Hypomagnesemia; R13.10 Dysphagia, unspecified; Z83.3 Family history of diabetes mellitus; Z82.49 Family history of ischemic heart disease and other diseases of the circulatory system; E88.09 Other disorders of plasma-protein metabolism, not elsewhere classified; E66.9 Obesity, unspecified; Z68.31 Body mass index [BMI] 31.0-31.9, adult; E11.319 Type 2 diabetes mellitus with unspecified diabetic retinopathy without macular edema; E11.42 Type 2 diabetes mellitus with diabetic polyneuropathy
CPT/HCPCS: 36415; 36556; 36558; 50200; 71045; 71250; 74176; 74470; 76770; 76937; 76942; 77001; 78582; 80048; 80053; 80076; 81001; 82044; 82550; 82553; 82570; 82607; 82728; 82746; 82948; 83036; 83518; 83540; 83605; 83735; 83880; 83970; 84100; 84156; 84165; 84166; 84443; 84466; 84484; 85025; 85379; 85610; 85730; 86021; 86039; 86160; 86225; 86704; 86705; 86706; 86850; 86900; 86920; 87040; 87070; 87086; 87340; 87390; 93005; 93306; 94640; 96361; 97139; 99152; 99284; A9540; A9558; C1769; C1892; G0433; G0435; J0360; J0456; J0696; J1644; J1940; J2001; J2150; J2250; J2405; J3010; J7030; J7050; P9016

== ENCOUNTER 2020-10-16 04:16 | Emergency (ER) | payer BC, OTHER ==
[~2020-10-16] VITALS: Ht 160 cm; Wt 79.4 kg
[~2020-10-16 04:16] MED LIST: ACETAMINOPHEN325 M1 PO; COLACE100 MG PO; DIOVAN160 MG PO; GLIPIZIDE ER5 MG PO; HYDROCHLOROTHIA25 MG PO; LOSARTAN POTAS100 MG PO; MUCINEX DM ER1 EACH PO; NORVASC5 MG PO; SEVELAMER CARB800 MG PO; SODIUM BICARBO650 MG PO; VASOTEC5 MG PO
[2020-10-16 04:40] LABS: BASOPHILS # (AUTO) 0.1 (0.0-0.1); BASOPHILS % 0.7 % (0.0-1.0); EOSINOPHILS # (AUTO) 0.3 (0.0-0.4); EOSINOPHILS % 3.2 % (0.0-6.0); HEMATOCRIT 32.5 % (34.2-44.1); HEMOGLOBIN 10.9 g/dL (12.0-16.0); LYMPHOCYTES # (AUTO) 1.4 (1.0-3.2); LYMPHOCYTES % 13.5 % (18.0-39.1); MEAN CORPUSCULAR HEMOGLOBIN 31.8 pg (28-32); MEAN CORPUSCULAR HGB CONC 33.5 g/dL (31-35); MEAN CORPUSCULAR VOLUME 94.8 fL (81-99); MONOCYTES # (AUTO) 0.6 (0.2-0.8); MONOCYTES % 5.5 % (4.4-11.3); NEUTROPHILS # (AUTO) 8.2 (2.1-6.9); NEUTROPHILS % 76.6 % (38.7-80.0); PLATELET COUNT 185 x10e3/uL (140-360); RED BLOOD COUNT 3.43 x10e6/uL (3.6-5.1); RED CELL DISTRIBUTION WIDTH 13.7 % (11.7-14.4)
[2020-10-16 04:53] LABS: ALBUMIN 3.5 g/dL (3.5-5.0); ALBUMIN/GLOBULIN RATIO 0.7 (0.8-2.0); ANION GAP 23.2 mmol/L (8-16); CALCIUM 7.4 mg/dL (8.4-10.2); CREATININE, SERUM 12.28 mg/dL (0.57-1.11); POTASSIUM 4.2 mmol/L (3.5-5.1)
[2020-10-16 05:15] LABS: CLARITY,URINE SL CLOUDY (CLEAR); COLOR,URINE YELLOW (YELLOW)
[2020-10-16] MEDS ORDERED: FUROSEMIDE INJ 10 MG/ML 4 ML VIAL IV ONE (05:15)
[2020-10-16 05:16] LABS: KETONES,URINE NEGATIVE (NEGATIVE); LEUKOCYTE ESTERASE ,URINE NEGATIVE (NEGATIVE); NITRITE,URINE NEGATIVE (NEGATIVE); PROTEIN,URINE DIPSTICK >=300 (NEGATIVE); URINE UROBILINOGEN 0.2 mg/dL (0.2 - 1)
[2020-10-16] MEDS ORDERED: FUROSEMIDE INJ 10 MG/ML 4 ML VIAL ONE (05:21)
[2020-10-16] MEDS ORDERED: FUROSEMIDE INJ 10 MG/ML 2 ML VIAL ONE (05:21)
[2020-10-16 05:27] LABS: BACTERIA,URINE RARE /HPF; EPITHELIAL CELLS,URINE FEW /LPF
== END 2020-10-16 08:46 | disposition home or self-care (01) ==
LOC: ER 04:23
DX: U07.1 COVID-19 (principal); R06.00 Dyspnea, unspecified; I12.0 Hypertensive chronic kidney disease with stage 5 chronic kidney disease or end stage renal disease; E11.22 Type 2 diabetes mellitus with diabetic chronic kidney disease; N18.6 End stage renal disease; Z99.2 Dependence on renal dialysis; I50.9 Heart failure, unspecified; D64.9 Anemia, unspecified; F41.9 Anxiety disorder, unspecified
CPT/HCPCS: 36415; 71045; 80053; 81001; 81025; 83735; 83880; 84484; 85025; 87086; 93005; 99284; J1940 ×2; U0002

== ENCOUNTER 2020-12-08 22:10 | Inpatient (IN) | payer BC ==
[~2020-12-08] VITALS: Ht 160 cm; Wt 79.4 kg
[2020-12-08 23:24] LABS: BASOPHILS % 0.7 % (0.0-1.0); EOSINOPHILS # (AUTO) 0.2 (0.0-0.4); EOSINOPHILS % 4.4 % (0.0-6.0); LYMPHOCYTES # (AUTO) 0.6 (1.0-3.2); LYMPHOCYTES % 14.5 % (18.0-39.1); MEAN CORPUSCULAR HEMOGLOBIN 31.8 pg (28-32); MEAN CORPUSCULAR HGB CONC 33.3 g/dL (31-35); MEAN CORPUSCULAR VOLUME 95.3 fL (81-99); MONOCYTES # (AUTO) 0.5 (0.2-0.8); MONOCYTES % 11.9 % (4.4-11.3); NEUTROPHILS # (AUTO) 2.9 (2.1-6.9); PLATELET COUNT 185 x10e3/uL (140-360); RED BLOOD COUNT 2.11 x10e6/uL (3.6-5.1); RED CELL DISTRIBUTION WIDTH 15.1 % (11.7-14.4)
[2020-12-08 23:28] LABS: HEMATOCRIT 20.1 % (34.2-44.1); HEMOGLOBIN 6.7 g/dL (12.0-16.0)
[2020-12-08 23:35] LABS: ALBUMIN 3.3 g/dL (3.5-5.0); ALBUMIN/GLOBULIN RATIO 0.8 (0.8-2.0); ANION GAP 15.5 mmol/L (8-16); CALCIUM 8.3 mg/dL (8.4-10.2); CREATININE, SERUM 7.47 mg/dL (0.57-1.11); POTASSIUM 3.5 mmol/L (3.5-5.1)
[2020-12-08 23:47] LABS: CREATINE KINASE MB 0.3 ng/mL (0-5.0)
[2020-12-08] MEDS ORDERED: IOPAMIDOL 370 MG/ML 200 ML INFUS..BTL INJ ONE (23:57)
[2020-12-08] MEDS ORDERED: SODIUM CHLORIDE 0.9% 50ML 50 ML ONE (23:57)
[2020-12-09] VITALS (9 sets, daily range): BP systolic 131–182; BP diastolic 64–74
[2020-12-09] MEDS ORDERED: ASPIRIN 81 MG CHEW TAB PO ONE
[2020-12-09] MEDS ORDERED: HYDRALAZINE HCL25 MG PO (02:28)
[2020-12-09] MEDS ORDERED: TEMAZEPAM 7.5 MG CAP PO PRN (04:45)
[2020-12-09] MEDS ORDERED: POLYETHYLENE GLYCOL 3350 17 GM PACK PO PRN (04:45)
[2020-12-09] MEDS ORDERED: ACETAMINOPHEN 325 MG TAB PO PRN (04:45)
[2020-12-09] MEDS ORDERED: ONDANSETRON HCL INJ 2MG/ML 2ML 2 MG/ML VIAL IV PRN (04:45)
[2020-12-09] MEDS: METOPROLOL TARTRATE INJ 1 MG/ML VIAL IV PRN (06:15)
[2020-12-09 08:15] LABS: BASOPHILS % 0.5 % (0.0-1.0); EOSINOPHILS # (AUTO) 0.2 (0.0-0.4); EOSINOPHILS % 3.1 % (0.0-6.0); HEMATOCRIT 24.2 % (34.2-44.1); HEMOGLOBIN 8.2 g/dL (12.0-16.0); LYMPHOCYTES # (AUTO) 0.5 (1.0-3.2); LYMPHOCYTES % 8.1 % (18.0-39.1); MEAN CORPUSCULAR HEMOGLOBIN 31.8 pg (28-32); MEAN CORPUSCULAR HGB CONC 33.9 g/dL (31-35); MEAN CORPUSCULAR VOLUME 93.8 fL (81-99); MONOCYTES # (AUTO) 0.5 (0.2-0.8); MONOCYTES % 7.4 % (4.4-11.3); NEUTROPHILS % 80.3 % (38.7-80.0); PLATELET COUNT 142 x10e3/uL (140-360); RED BLOOD COUNT 2.58 x10e6/uL (3.6-5.1); RED CELL DISTRIBUTION WIDTH 15.2 % (11.7-14.4)
[2020-12-09 08:39] LABS: ALBUMIN 3.1 g/dL (3.5-5.0); ALBUMIN/GLOBULIN RATIO 0.8 (0.8-2.0); ANION GAP 13.6 mmol/L (8-16); CALCIUM 7.9 mg/dL (8.4-10.2); CREATININE, SERUM 8.05 mg/dL (0.57-1.11); POTASSIUM 3.6 mmol/L (3.5-5.1)
[2020-12-09 09:06] LABS: CREATINE KINASE MB 0.4 ng/mL (0-5.0)
[2020-12-09] MEDS: DOCUSATE SODIUM 100 MG CAP PO SCH ×2 (09:10→17:07)
[2020-12-09] MEDS: FAMOTIDINE 20 MG TAB PO SCH (09:11)
[2020-12-09 15:53] LABS: CREATINE KINASE MB 0.5 ng/mL (0-5.0)
[2020-12-09 19:15] LABS: PROTHROMBIN TIME 13.8 seconds (11.9-14.5)
[2020-12-09] MEDS ORDERED: SODIUM CHLORIDE 0.9% 1000ML 1,000 ML ONE (19:44)
[2020-12-09] MEDS ORDERED: SODIUM CHLORIDE 0.9% 1000ML 2,000 ML IV PRN (19:45)
[2020-12-09] MEDS ORDERED: HEPARIN SOD (PORCINE) 1000 UNIT/ML SDV IV PRN (19:45)
[2020-12-10] VITALS (8 sets, daily range): BP systolic 146–176; BP diastolic 64–74
[2020-12-10] MEDS: METOPROLOL TARTRATE INJ 1 MG/ML VIAL IV PRN ×2 (05:14→21:53)
[2020-12-10] MEDS: FAMOTIDINE 20 MG TAB PO SCH (08:26)
[2020-12-10] MEDS: DOCUSATE SODIUM 100 MG CAP PO SCH ×2 (08:26→17:36)
[2020-12-10 17:17] LABS: BASOPHILS # (AUTO) 0.1 (0.0-0.1); BASOPHILS % 0.9 % (0.0-1.0); EOSINOPHILS # (AUTO) 0.3 (0.0-0.4); EOSINOPHILS % 4.7 % (0.0-6.0); HEMATOCRIT 23.9 % (34.2-44.1); HEMOGLOBIN 8.4 g/dL (12.0-16.0); LYMPHOCYTES # (AUTO) 1.5 (1.0-3.2); LYMPHOCYTES % 26.2 % (18.0-39.1); MEAN CORPUSCULAR HEMOGLOBIN 32.4 pg (28-32); MEAN CORPUSCULAR HGB CONC 35.1 g/dL (31-35); MEAN CORPUSCULAR VOLUME 92.3 fL (81-99); MONOCYTES # (AUTO) 0.5 (0.2-0.8); MONOCYTES % 8.6 % (4.4-11.3); NEUTROPHILS # (AUTO) 3.4 (2.1-6.9); NEUTROPHILS % 59.3 % (38.7-80.0); PLATELET COUNT 175 x10e3/uL (140-360); RED BLOOD COUNT 2.59 x10e6/uL (3.6-5.1); RED CELL DISTRIBUTION WIDTH 15.1 % (11.7-14.4)
[2020-12-11 00:08] VITALS: BP 137/68
[2020-12-11] MEDS: METOPROLOL TARTRATE INJ 1 MG/ML VIAL IV PRN (04:01)
[2020-12-11 04:16] VITALS: BP 193/70
[2020-12-11 06:52] LABS: BASOPHILS % 0.4 % (0.0-1.0); EOSINOPHILS # (AUTO) 0.3 (0.0-0.4); EOSINOPHILS % 5.8 % (0.0-6.0); HEMOGLOBIN 7.4 g/dL (12.0-16.0); LYMPHOCYTES # (AUTO) 1.4 (1.0-3.2); LYMPHOCYTES % 26.2 % (18.0-39.1); MEAN CORPUSCULAR HEMOGLOBIN 31.5 pg (28-32); MEAN CORPUSCULAR HGB CONC 34.1 g/dL (31-35); MEAN CORPUSCULAR VOLUME 92.3 fL (81-99); MONOCYTES # (AUTO) 0.4 (0.2-0.8); MONOCYTES % 7.9 % (4.4-11.3); NEUTROPHILS # (AUTO) 3.1 (2.1-6.9); NEUTROPHILS % 59.1 % (38.7-80.0); PLATELET COUNT 134 x10e3/uL (140-360); RED BLOOD COUNT 2.35 x10e6/uL (3.6-5.1); RED CELL DISTRIBUTION WIDTH 14.7 % (11.7-14.4)
[2020-12-11 06:54] LABS: HEMATOCRIT 21.7 % (34.2-44.1)
[2020-12-11 07:10] LABS: INR 0.96; PROTHROMBIN TIME 13.4 seconds (11.9-14.5)
[2020-12-11 07:11] LABS: PARTIAL THROMBOPLASTIN TIME 29.4 seconds (23.8-35.5)
[2020-12-11 07:26] LABS: ANION GAP 17.9 mmol/L (8-16); CALCIUM 7.4 mg/dL (8.4-10.2); CREATININE, SERUM 8.22 mg/dL (0.57-1.11); POTASSIUM 3.9 mmol/L (3.5-5.1)
[2020-12-11 07:27] VITALS: BP 190/77
[2020-12-11] MEDS ORDERED: COLACE100 MG PO (08:07)
[2020-12-11] MEDS ORDERED: FEOSOL325 MG PO (08:07)
[2020-12-11] MEDS: FAMOTIDINE 20 MG TAB PO SCH (08:15)
[2020-12-11] MEDS: DOCUSATE SODIUM 100 MG CAP PO SCH (08:15)
[2020-12-11 08:48] VITALS: BP 190/77
[2020-12-11] MEDS ORDERED: AMLODIPINE BESYLATE 5 MG TAB PO SCH (09:00)
== END 2020-12-11 11:02 | disposition home or self-care (01) | DRG 760 ==
LOC: ER 22:44 → ERHOLD 23:56 → MED/SURG3 12-09 01:16
PROVIDERS: ADMIT Internal Medicine; ATTEND Internal Medicine
PROC: 30233N1 Transfusion of Nonautologous Red Blood Cells into Peripheral Vein, Percutaneous Approach (ICD-10-PCS; principal; 2020-12-09)
PROC: 5A1D70Z Performance of Urinary Filtration, Intermittent, Less than 6 Hours Per Day (ICD-10-PCS; 2020-12-09)
DX: N93.8 Other specified abnormal uterine and vaginal bleeding (principal); N18.6 End stage renal disease; I13.2 Hypertensive heart and chronic kidney disease with heart failure and with stage 5 chronic kidney disease, or end stage renal disease; D62 Acute posthemorrhagic anemia; N25.81 Secondary hyperparathyroidism of renal origin; E11.22 Type 2 diabetes mellitus with diabetic chronic kidney disease; I50.9 Heart failure, unspecified; Z99.2 Dependence on renal dialysis; K74.60 Unspecified cirrhosis of liver; D63.1 Anemia in chronic kidney disease; Z20.822 Contact with and (suspected) exposure to COVID-19
CPT/HCPCS: 36415; 71045; 74177; 76830; 76856; 80048; 80053; 82550; 82553; 82948; 84484; 85025; 85610; 85730; 86706; 86850; 86900; 86920; 87340; 93005; 99251; 99284; J1644; J7030; P9016; Q9967; U0002

== ENCOUNTER 2020-12-25 13:46 | Inpatient (IN) | payer BC ==
[~2020-12-25] VITALS: Ht 160 cm; Wt 73.9 kg
[~2020-12-25 13:46] MED LIST changes: +FEOSOL325 MG PO; +HYDRALAZINE HCL25 MG PO
[2020-12-25 14:28] LABS: BASOPHILS # (AUTO) 0.1 (0.0-0.1); BASOPHILS % 0.9 % (0.0-1.0); EOSINOPHILS # (AUTO) 0.3 (0.0-0.4); EOSINOPHILS % 5.4 % (0.0-6.0); LYMPHOCYTES # (AUTO) 1.6 (1.0-3.2); LYMPHOCYTES % 28.3 % (18.0-39.1); MEAN CORPUSCULAR HEMOGLOBIN 31.6 pg (28-32); MEAN CORPUSCULAR HGB CONC 31.8 g/dL (31-35); MEAN CORPUSCULAR VOLUME 99.4 fL (81-99); MONOCYTES # (AUTO) 0.3 (0.2-0.8); MONOCYTES % 5.9 % (4.4-11.3); NEUTROPHILS # (AUTO) 3.3 (2.1-6.9); NEUTROPHILS % 59.1 % (38.7-80.0); PLATELET COUNT 162 x10e3/uL (140-360); RED BLOOD COUNT 1.77 x10e6/uL (3.6-5.1); RED CELL DISTRIBUTION WIDTH 14.8 % (11.7-14.4)
[2020-12-25 14:31] LABS: HEMATOCRIT 17.6 % (34.2-44.1); HEMOGLOBIN 5.6 g/dL (12.0-16.0)
[2020-12-25] MEDS ORDERED: SODIUM CHLORIDE 0.9% 250ML 250 ML IV ONE (14:45)
[2020-12-25 14:46] LABS: ANION GAP 15.9 mmol/L (8-16); CALCIUM 7.7 mg/dL (8.4-10.2); CREATININE, SERUM 10.14 mg/dL (0.57-1.11); POTASSIUM 3.9 mmol/L (3.5-5.1)
[2020-12-25 14:51] LABS: INR 0.93; PROTHROMBIN TIME 13.1 seconds (11.9-14.5)
[2020-12-25 16:13] VITALS: BP 162/65
[2020-12-25 16:25] VITALS: BP 162/65
[2020-12-25 16:26] VITALS: BP 162/65
[2020-12-25 16:27] VITALS: BP 162/65
[2020-12-25] MEDS ORDERED: ACETAMINOPHEN 325 MG TAB PO PRN (16:30)
[2020-12-25 16:48] LABS: % IRON SATURATION 30 % (15-50); IRON 83 ug/dL (50-170); TOTAL IRON BINDING CAPACITY 281 ug/dL (261-478); TRANSFERRIN 201 mg/dL (180-382)
[2020-12-25] MEDS: SEVELAMER CARBONATE 800 MG TAB PO SCH ×2 (17:00→17:14)
[2020-12-25] MEDS: HYDRALAZINE HCL 25 MG TAB PO SCH (19:57)
[2020-12-25 20:33] VITALS: BP 138/63
[2020-12-25] MEDS ORDERED: SODIUM CHLORIDE 0.9% 250ML 250 ML ONE (23:40)
[2020-12-26] VITALS (7 sets, daily range): BP systolic 127–178; BP diastolic 65–81
[2020-12-26 05:32] LABS: BASOPHILS # (AUTO) 0.1 (0.0-0.1); BASOPHILS % 0.9 % (0.0-1.0); EOSINOPHILS # (AUTO) 0.4 (0.0-0.4); EOSINOPHILS % 5.5 % (0.0-6.0); HEMATOCRIT 23.4 % (34.2-44.1); HEMOGLOBIN 7.9 g/dL (12.0-16.0); LYMPHOCYTES # (AUTO) 1.6 (1.0-3.2); LYMPHOCYTES % 23.6 % (18.0-39.1); MEAN CORPUSCULAR HEMOGLOBIN 31.1 pg (28-32); MEAN CORPUSCULAR HGB CONC 33.8 g/dL (31-35); MEAN CORPUSCULAR VOLUME 92.1 fL (81-99); MONOCYTES # (AUTO) 0.4 (0.2-0.8); MONOCYTES % 5.8 % (4.4-11.3); NEUTROPHILS # (AUTO) 4.2 (2.1-6.9); NEUTROPHILS % 63.6 % (38.7-80.0); PLATELET COUNT 121 x10e3/uL (140-360); RED BLOOD COUNT 2.54 x10e6/uL (3.6-5.1); RED CELL DISTRIBUTION WIDTH 16.7 % (11.7-14.4)
[2020-12-26 05:53] LABS: ANION GAP 16.2 mmol/L (8-16); CALCIUM 7.5 mg/dL (8.4-10.2); CREATININE, SERUM 10.93 mg/dL (0.57-1.11); POTASSIUM 4.2 mmol/L (3.5-5.1)
[2020-12-26] MEDS ORDERED: AMLODIPINE BESYLATE 5 MG TAB PO SCH (09:00)
[2020-12-26] MEDS: AMLODIPINE BESYLATE 10 MG TAB PO SCH (09:00)
[2020-12-26] MEDS: DOCUSATE SODIUM 100 MG CAP PO SCH ×2 (09:00→09:08)
[2020-12-26] MEDS: SEVELAMER CARBONATE 800 MG TAB PO SCH ×2 (09:07→18:07)
[2020-12-26] MEDS: HYDRALAZINE HCL 25 MG TAB PO SCH ×3 (09:08→21:00)
[2020-12-26] MEDS ORDERED: SODIUM CHLORIDE 0.9% 250ML 500 ML IV PRN (09:15)
[2020-12-26] MEDS ORDERED: ALBUMIN 25% 12.5GM 0.25 GM/ML BTL IV PRN (09:15)
[2020-12-26] MEDS ORDERED: SODIUM CHLORIDE 0.9% 1000ML 2,000 ML IV PRN (09:15)
[2020-12-26] MEDS ORDERED: SODIUM FERRIC GLUCONATE COMPLX 125 MG in SODIUM CHLORIDE 0.9% 100 ML 100 ML IV SCH (14:00)
[2020-12-26 14:16] LABS: HEMOGLOBIN 7.7 g/dL (12.0-16.0)
[2020-12-26 14:19] LABS: HEMATOCRIT 22.8 % (34.2-44.1)
[2020-12-26] MEDS ORDERED: SODIUM CHLORIDE 0.9% 1000ML 2,000 ML ONE (16:18)
[2020-12-26] MEDS ORDERED: HEPARIN SOD (PORCINE) 1000 UNIT/ML SDV IV PRN (17:15)
[2020-12-26] MEDS: EPOETIN ALFA-EPBX 10,000 UNIT/ML VIAL SC SCH (18:07)
[2020-12-26] MEDS: SODIUM FERRIC GLUCONATE COMPLX 125 MG in SODIUM CHLORIDE 0.9% 100 ML 100 ML IV SCH (21:00)
[2020-12-26] MEDS ORDERED: SODIUM CHLORIDE 0.9% 250ML 250 ML ONE (21:34)
[2020-12-27] VITALS (8 sets, daily range): BP systolic 122–182; BP diastolic 66–96
[2020-12-27 05:09] LABS: HEMATOCRIT 22.1 % (34.2-44.1); HEMOGLOBIN 7.4 g/dL (12.0-16.0)
[2020-12-27 05:33] LABS: CALCIUM 7.4 mg/dL (8.4-10.2); CREATININE, SERUM 6.23 mg/dL (0.57-1.11)
[2020-12-27] MEDS: SEVELAMER CARBONATE 800 MG TAB PO SCH ×2 (08:00→16:59)
[2020-12-27] MEDS: AMLODIPINE BESYLATE 10 MG TAB PO SCH (08:31)
[2020-12-27] MEDS: HYDRALAZINE HCL 25 MG TAB PO SCH ×3 (08:31→20:19)
[2020-12-27] MEDS: DOCUSATE SODIUM 100 MG CAP PO SCH (09:00)
[2020-12-27] MEDS ORDERED: HEPARIN SOD (PORCINE) 1000 UNIT/ML 30ML ONE (10:16)
[2020-12-27] MEDS ORDERED: SODIUM CHLORIDE 0.9% 100 ML ONE (10:16)
[2020-12-27] MEDS ORDERED: SODIUM CHLORIDE 0.9% 500ML 500 ML ONE (10:22)
[2020-12-27] MEDS ORDERED: LIDOCAINE HCL 2% LOCAL INJ 5 ML SDV VIAL INJ ONE (11:59)
[2020-12-27] MEDS ORDERED: ONDANSETRON HCL INJ 2MG/ML 2ML 2 MG/ML VIAL ONE (11:59)
[2020-12-27] MEDS ORDERED: POVIDONE IODINE 0.05% 0.05 % ML PO ONE (11:59)
[2020-12-27] MEDS ORDERED: DEXAMETHASONE SOD PHOS INJ 4 MG/ML VIAL ONE (11:59)
[2020-12-27] MEDS ORDERED: FENTANYL CITRATE/PF 100MCG/2 ML INJ ONE ×2 (11:59→12:41)
[2020-12-27] MEDS ORDERED: SEVOFLURANE INHAL SOLN 250 ML PEN BTL ONE (11:59)
[2020-12-27] MEDS ORDERED: PROPOFOL IV EMULSION 10 MG/ML 20 ML VIAL ONE (11:59)
[2020-12-27] MEDS ORDERED: MIDAZOLAM HCL 2 MG/2 ML VIAL ONE (12:41)
[2020-12-27 15:07] LABS: HEMATOCRIT 24.5 % (34.2-44.1); HEMOGLOBIN 8.1 g/dL (12.0-16.0)
[2020-12-27] MEDS: HYDROCODONE/APAP 5MG-325MG TAB PO PRN (16:23)
[2020-12-27] MEDS: SODIUM FERRIC GLUCONATE COMPLX 125 MG in SODIUM CHLORIDE 0.9% 100 ML 100 ML IV SCH (16:59)
[2020-12-28 06:36] LABS: BASOPHILS % 0.3 % (0.0-1.0); HEMATOCRIT 23.9 % (34.2-44.1); LYMPHOCYTES # (AUTO) 0.7 (1.0-3.2); LYMPHOCYTES % 8.8 % (18.0-39.1); MEAN CORPUSCULAR HEMOGLOBIN 31.4 pg (28-32); MEAN CORPUSCULAR HGB CONC 33.5 g/dL (31-35); MEAN CORPUSCULAR VOLUME 93.7 fL (81-99); MONOCYTES # (AUTO) 0.5 (0.2-0.8); MONOCYTES % 6.6 % (4.4-11.3); NEUTROPHILS # (AUTO) 6.2 (2.1-6.9); NEUTROPHILS % 83.4 % (38.7-80.0); PLATELET COUNT 129 x10e3/uL (140-360); RED BLOOD COUNT 2.55 x10e6/uL (3.6-5.1); RED CELL DISTRIBUTION WIDTH 15.4 % (11.7-14.4)
[2020-12-28 07:01] LABS: ALBUMIN/GLOBULIN RATIO 0.8 (0.8-2.0); ANION GAP 16.1 mmol/L (8-16); CALCIUM 7.7 mg/dL (8.4-10.2); CREATININE, SERUM 8.83 mg/dL (0.57-1.11); POTASSIUM 5.1 mmol/L (3.5-5.1)
[2020-12-28 08:20] VITALS: BP 173/74
[2020-12-28] MEDS: SEVELAMER CARBONATE 800 MG TAB PO SCH ×2 (08:24→17:00)
[2020-12-28] MEDS: DOCUSATE SODIUM 100 MG CAP PO SCH (08:25)
[2020-12-28] MEDS: AMLODIPINE BESYLATE 10 MG TAB PO SCH (08:25)
[2020-12-28] MEDS: HYDRALAZINE HCL 25 MG TAB PO SCH ×4 (08:25→23:11)
[2020-12-28 08:55] VITALS: BP 173/74
[2020-12-28 11:51] VITALS: BP 170/76
[2020-12-28 16:14] VITALS: BP 161/77
[2020-12-28 16:28] LABS: HEMOGLOBIN 6.6 g/dL (12.0-16.0)
[2020-12-28 16:29] LABS: HEMATOCRIT 19.9 % (34.2-44.1)
[2020-12-28] MEDS: SODIUM FERRIC GLUCONATE COMPLX 125 MG in SODIUM CHLORIDE 0.9% 100 ML 100 ML IV SCH ×2 (17:00→23:10)
[2020-12-28] MEDS ORDERED: SODIUM CHLORIDE 0.9% 250ML 250 ML IV ONE (17:00)
[2020-12-28 21:00] VITALS: BP 141/78
[2020-12-28] MEDS: EPOETIN ALFA-EPBX 10,000 UNIT/ML VIAL SC SCH (23:10)
[2020-12-29] MEDS: HYDRALAZINE HCL 20 MG/ML VIAL IV PRN ×2 (03:53→09:26)
[2020-12-29 08:05] VITALS: BP 175/79
[2020-12-29 08:43] VITALS: BP 175/79
[2020-12-29] MEDS: SEVELAMER CARBONATE 800 MG TAB PO SCH ×2 (08:47→16:50)
[2020-12-29] MEDS: DOCUSATE SODIUM 100 MG CAP PO SCH (08:47)
[2020-12-29] MEDS: HYDRALAZINE HCL 25 MG TAB PO SCH ×3 (08:47→21:07)
[2020-12-29 08:48] VITALS: BP 175/79
[2020-12-29] MEDS: AMLODIPINE BESYLATE 10 MG TAB PO SCH (08:48)
[2020-12-29 11:48] VITALS: BP 169/73
[2020-12-29] MEDS: HYDROCODONE/APAP 5MG-325MG TAB PO PRN (12:09)
[2020-12-29] MEDS: NIFEDIPINE CR 30 MG TAB PO SCH (12:14)
[2020-12-29 15:35] VITALS: BP 154/74
[2020-12-29 16:03] LABS: BASOPHILS # (AUTO) 0.1 (0.0-0.1); BASOPHILS % 0.7 % (0.0-1.0); EOSINOPHILS # (AUTO) 0.2 (0.0-0.4); EOSINOPHILS % 3.4 % (0.0-6.0); HEMATOCRIT 27.7 % (34.2-44.1); HEMOGLOBIN 9.4 g/dL (12.0-16.0); LYMPHOCYTES # (AUTO) 1.2 (1.0-3.2); LYMPHOCYTES % 17.3 % (18.0-39.1); MEAN CORPUSCULAR HEMOGLOBIN 31.4 pg (28-32); MEAN CORPUSCULAR HGB CONC 33.9 g/dL (31-35); MEAN CORPUSCULAR VOLUME 92.6 fL (81-99); MONOCYTES # (AUTO) 0.6 (0.2-0.8); MONOCYTES % 9.2 % (4.4-11.3); NEUTROPHILS # (AUTO) 4.7 (2.1-6.9); NEUTROPHILS % 68.5 % (38.7-80.0); PLATELET COUNT 119 x10e3/uL (140-360); RED BLOOD COUNT 2.99 x10e6/uL (3.6-5.1); RED CELL DISTRIBUTION WIDTH 15.6 % (11.7-14.4)
[2020-12-29] MEDS: SODIUM FERRIC GLUCONATE COMPLX 125 MG in SODIUM CHLORIDE 0.9% 100 ML 100 ML IV SCH (16:40)
[2020-12-29] MEDS ORDERED: SODIUM CHLORIDE 0.9% 50ML 50 ML ONE (16:45)
[2020-12-29 20:14] VITALS: BP 154/74
[2020-12-30 05:09] LABS: BASOPHILS # (AUTO) 0.1 (0.0-0.1); BASOPHILS % 0.8 % (0.0-1.0); EOSINOPHILS # (AUTO) 0.3 (0.0-0.4); EOSINOPHILS % 4.2 % (0.0-6.0); HEMATOCRIT 28.2 % (34.2-44.1); HEMOGLOBIN 9.6 g/dL (12.0-16.0); LYMPHOCYTES # (AUTO) 1.1 (1.0-3.2); LYMPHOCYTES % 16.8 % (18.0-39.1); MEAN CORPUSCULAR HEMOGLOBIN 31.3 pg (28-32); MEAN CORPUSCULAR VOLUME 91.9 fL (81-99); MONOCYTES # (AUTO) 0.7 (0.2-0.8); MONOCYTES % 10.1 % (4.4-11.3); NEUTROPHILS # (AUTO) 4.5 (2.1-6.9); NEUTROPHILS % 67.5 % (38.7-80.0); PLATELET COUNT 121 x10e3/uL (140-360); RED BLOOD COUNT 3.07 x10e6/uL (3.6-5.1); RED CELL DISTRIBUTION WIDTH 15.2 % (11.7-14.4)
[2020-12-30 05:32] LABS: ANION GAP 16.6 mmol/L (8-16); CALCIUM 7.7 mg/dL (8.4-10.2); POTASSIUM 4.6 mmol/L (3.5-5.1)
[2020-12-30] MEDS ORDERED: SODIUM CHLORIDE 0.9% 1000ML 1,000 ML ONE (07:54)
[2020-12-30] MEDS: SEVELAMER CARBONATE 800 MG TAB PO SCH ×2 (08:00→17:40)
[2020-12-30 08:14] VITALS: BP 156/73
[2020-12-30 08:24] VITALS: BP 156/73
[2020-12-30] MEDS: HYDRALAZINE HCL 25 MG TAB PO SCH ×3 (09:00→21:39)
[2020-12-30] MEDS: DOCUSATE SODIUM 100 MG CAP PO SCH (09:00)
[2020-12-30] MEDS: NIFEDIPINE CR 30 MG TAB PO SCH (09:00)
[2020-12-30 12:43] VITALS: BP 167/82
[2020-12-30 15:11] VITALS: BP 172/72
[2020-12-30] MEDS: EPOETIN ALFA-EPBX 10,000 UNIT/ML VIAL SC SCH (17:42)
[2020-12-30] MEDS: SODIUM FERRIC GLUCONATE COMPLX 125 MG in SODIUM CHLORIDE 0.9% 100 ML 100 ML IV SCH (18:08)
[2020-12-30 20:43] VITALS: BP 172/72
[2020-12-31 05:44] LABS: BASOPHILS # (AUTO) 0.1 (0.0-0.1); BASOPHILS % 0.8 % (0.0-1.0); EOSINOPHILS # (AUTO) 0.2 (0.0-0.4); HEMATOCRIT 28.2 % (34.2-44.1); HEMOGLOBIN 9.4 g/dL (12.0-16.0); LYMPHOCYTES # (AUTO) 0.8 (1.0-3.2); LYMPHOCYTES % 12.6 % (18.0-39.1); MEAN CORPUSCULAR HEMOGLOBIN 31.1 pg (28-32); MEAN CORPUSCULAR HGB CONC 33.3 g/dL (31-35); MEAN CORPUSCULAR VOLUME 93.4 fL (81-99); MONOCYTES # (AUTO) 0.6 (0.2-0.8); MONOCYTES % 9.8 % (4.4-11.3); NEUTROPHILS # (AUTO) 4.3 (2.1-6.9); PLATELET COUNT 119 x10e3/uL (140-360); RED BLOOD COUNT 3.02 x10e6/uL (3.6-5.1)
[2020-12-31 07:58] VITALS: BP 187/82
[2020-12-31] MEDS: HYDROCODONE/APAP 5MG-325MG TAB PO PRN (08:55)
[2020-12-31] MEDS: SEVELAMER CARBONATE 800 MG TAB PO SCH ×2 (08:59→17:00)
[2020-12-31] MEDS: NIFEDIPINE CR 30 MG TAB PO SCH (09:00)
[2020-12-31] MEDS: HYDRALAZINE HCL 25 MG TAB PO SCH ×3 (09:00→21:16)
[2020-12-31] MEDS: DOCUSATE SODIUM 100 MG CAP PO SCH ×3 (09:00→16:18)
[2020-12-31 09:01] VITALS: BP 187/82
[2020-12-31] MEDS ORDERED: CITRATE OF MAGNESIA 300ML BOTTLE PO ONE (10:30)
[2020-12-31 12:00] VITALS: BP 163/78
[2020-12-31 15:54] VITALS: BP 174/80
[2020-12-31 19:55] VITALS: BP 148/78
[2020-12-31] MEDS: MAGNESIUM HYDROXIDE 30 ML UDC PO PRN (21:17)
[2020-12-31 21:20] VITALS: BP 148/78
[2021-01-01] VITALS (8 sets, daily range): BP systolic 136–169; BP diastolic 71–83
[2021-01-01] MEDS: SEVELAMER CARBONATE 800 MG TAB PO SCH ×2 (08:00→16:48)
[2021-01-01] MEDS: HYDRALAZINE HCL 25 MG TAB PO SCH ×3 (08:45→21:13)
[2021-01-01] MEDS: DOCUSATE SODIUM 100 MG CAP PO SCH ×2 (08:46→16:48)
[2021-01-01] MEDS: NIFEDIPINE CR 30 MG TAB PO SCH (08:46)
[2021-01-01] MEDS: MAGNESIUM HYDROXIDE 30 ML UDC PO PRN (14:21)
[2021-01-01] MEDS ORDERED: SOD PHOSPHATE/SOD BIPHOSPHATE ENEMA 132 ML BTL PR ONE (21:00)
[2021-01-02] VITALS (9 sets, daily range): BP systolic 136–190; BP diastolic 67–88
[2021-01-02 05:19] LABS: BASOPHILS % 0.3 % (0.0-1.0); EOSINOPHILS # (AUTO) 0.3 (0.0-0.4); EOSINOPHILS % 3.9 % (0.0-6.0); HEMATOCRIT 27.1 % (34.2-44.1); HEMOGLOBIN 9.1 g/dL (12.0-16.0); LYMPHOCYTES # (AUTO) 0.7 (1.0-3.2); LYMPHOCYTES % 10.7 % (18.0-39.1); MEAN CORPUSCULAR HEMOGLOBIN 31.8 pg (28-32); MEAN CORPUSCULAR HGB CONC 33.6 g/dL (31-35); MEAN CORPUSCULAR VOLUME 94.8 fL (81-99); MONOCYTES # (AUTO) 0.5 (0.2-0.8); MONOCYTES % 6.9 % (4.4-11.3); NEUTROPHILS # (AUTO) 5.2 (2.1-6.9); NEUTROPHILS % 77.6 % (38.7-80.0); PLATELET COUNT 150 x10e3/uL (140-360); RED BLOOD COUNT 2.86 x10e6/uL (3.6-5.1); RED CELL DISTRIBUTION WIDTH 15.5 % (11.7-14.4)
[2021-01-02 05:37] LABS: ANION GAP 20.1 mmol/L (8-16); CALCIUM 7.9 mg/dL (8.4-10.2); CREATININE, SERUM 9.84 mg/dL (0.57-1.11); POTASSIUM 5.1 mmol/L (3.5-5.1)
[2021-01-02] MEDS: SEVELAMER CARBONATE 800 MG TAB PO SCH ×2 (08:00→17:00)
[2021-01-02] MEDS: HYDRALAZINE HCL 25 MG TAB PO SCH ×3 (08:38→21:00)
[2021-01-02] MEDS: NIFEDIPINE CR 30 MG TAB PO SCH (08:38)
[2021-01-02] MEDS: DOCUSATE SODIUM 100 MG CAP PO SCH ×2 (08:38→17:00)
[2021-01-02] MEDS ORDERED: SOD PHOSPHATE/SOD BIPHOSPHATE ENEMA 132 ML BTL PR ONE (09:00)
[2021-01-02] MEDS ORDERED: HEPARIN SOD (PORCINE) 1000 UNIT/ML SDV IV PRN (12:15)
[2021-01-03] VITALS (8 sets, daily range): BP systolic 158–196; BP diastolic 74–84
[2021-01-03] MEDS: HYDRALAZINE HCL 20 MG/ML VIAL IV PRN (01:23)
[2021-01-03] MEDS: NIFEDIPINE CR 30 MG TAB PO SCH (07:59)
[2021-01-03] MEDS: DOCUSATE SODIUM 100 MG CAP PO SCH ×2 (07:59→17:38)
[2021-01-03] MEDS: SEVELAMER CARBONATE 800 MG TAB PO SCH ×2 (07:59→17:38)
[2021-01-03] MEDS: HYDRALAZINE HCL 25 MG TAB PO SCH ×3 (09:17→21:20)
[2021-01-03 10:53] LABS: BASOPHILS % 0.5 % (0.0-1.0); EOSINOPHILS # (AUTO) 0.2 (0.0-0.4); HEMATOCRIT 27.8 % (34.2-44.1); HEMOGLOBIN 9.3 g/dL (12.0-16.0); LYMPHOCYTES # (AUTO) 0.7 (1.0-3.2); LYMPHOCYTES % 12.1 % (18.0-39.1); MEAN CORPUSCULAR HEMOGLOBIN 31.8 pg (28-32); MEAN CORPUSCULAR HGB CONC 33.5 g/dL (31-35); MEAN CORPUSCULAR VOLUME 95.2 fL (81-99); MONOCYTES # (AUTO) 0.6 (0.2-0.8); MONOCYTES % 10.6 % (4.4-11.3); NEUTROPHILS # (AUTO) 4.4 (2.1-6.9); PLATELET COUNT 113 x10e3/uL (140-360); RED BLOOD COUNT 2.92 x10e6/uL (3.6-5.1); RED CELL DISTRIBUTION WIDTH 15.3 % (11.7-14.4)
[2021-01-04] VITALS (8 sets, daily range): BP systolic 131–169; BP diastolic 61–80
[2021-01-04] MEDS: SEVELAMER CARBONATE 800 MG TAB PO SCH ×2 (08:00→16:57)
[2021-01-04 08:13] LABS: ANION GAP 18.2 mmol/L (8-16); CALCIUM 8.1 mg/dL (8.4-10.2); CREATININE, SERUM 9.24 mg/dL (0.57-1.11); POTASSIUM 5.2 mmol/L (3.5-5.1)
[2021-01-04] MEDS: DOCUSATE SODIUM 100 MG CAP PO SCH ×2 (09:00→16:57)
[2021-01-04] MEDS: HYDRALAZINE HCL 25 MG TAB PO SCH ×3 (09:59→21:41)
[2021-01-04] MEDS: NIFEDIPINE CR 30 MG TAB PO SCH (09:59)
[2021-01-04] MEDS ORDERED: PROPOFOL IV EMULSION 10 MG/ML 20 ML VIAL ONE (13:49)
[2021-01-04] MEDS ORDERED: POVIDONE IODINE 0.05% 0.05 % ML PO ONE (13:49)
[2021-01-04] MEDS ORDERED: ONDANSETRON HCL INJ 2MG/ML 2ML 2 MG/ML VIAL ONE (13:49)
[2021-01-04] MEDS ORDERED: SEVOFLURANE INHAL SOLN 250 ML PEN BTL ONE (13:49)
[2021-01-04] MEDS ORDERED: LIDOCAINE HCL 2% LOCAL INJ 5 ML SDV VIAL INJ ONE (13:49)
[2021-01-04] MEDS ORDERED: FENTANYL CITRATE/PF 100MCG/2 ML INJ ONE (13:50)
[2021-01-04] MEDS ORDERED: SODIUM CHLORIDE 0.9% 500ML 500 ML ONE (14:04)
[2021-01-05] VITALS: BP 145/65
[2021-01-05 02:33] VITALS: BP 167/82
[2021-01-05 04:00] VITALS: BP 155/71
[2021-01-05 08:52] VITALS: BP 155/71
[2021-01-05] MEDS: DOCUSATE SODIUM 100 MG CAP PO SCH (09:30)
[2021-01-05] MEDS: NIFEDIPINE CR 30 MG TAB PO SCH (09:30)
[2021-01-05] MEDS: SEVELAMER CARBONATE 800 MG TAB PO SCH (09:30)
[2021-01-05] MEDS: HYDRALAZINE HCL 25 MG TAB PO SCH (09:30)
== END 2021-01-05 12:58 | disposition home or self-care (01) | DRG 674 ==
LOC: ER 13:54 → ERHOLD 14:43 → IMCU 15:57 → MED/SURG2 22:28 → OBSVTOIN 12-26 09:56
PROVIDERS: ADMIT Internal Medicine; ATTEND Internal Medicine
PROC: 30233N1 Transfusion of Nonautologous Red Blood Cells into Peripheral Vein, Percutaneous Approach (ICD-10-PCS; principal; 2020-12-25)
PROC: 5A1D70Z Performance of Urinary Filtration, Intermittent, Less than 6 Hours Per Day (ICD-10-PCS; 2020-12-26)
PROC: 031C09F Bypass Left Radial Artery to Lower Arm Vein with Autologous Venous Tissue, Open Approach (ICD-10-PCS; 2020-12-27)
PROC: 05BF0ZZ Excision of Left Cephalic Vein, Open Approach (ICD-10-PCS; 2020-12-27)
PROC: 5A1D70Z Performance of Urinary Filtration, Intermittent, Less than 6 Hours Per Day (ICD-10-PCS; 2020-12-28)
PROC: 5A1D70Z Performance of Urinary Filtration, Intermittent, Less than 6 Hours Per Day (ICD-10-PCS; 2020-12-30)
PROC: 5A1D70Z Performance of Urinary Filtration, Intermittent, Less than 6 Hours Per Day (ICD-10-PCS; 2021-01-02)
PROC: 0UDB8ZZ Extraction of Endometrium, Via Natural or Artificial Opening Endoscopic (ICD-10-PCS; 2021-01-04)
PROC: 5A1D70Z Performance of Urinary Filtration, Intermittent, Less than 6 Hours Per Day (ICD-10-PCS; 2021-01-04)
DX: N36.8 Other specified disorders of urethra (principal); D62 Acute posthemorrhagic anemia; I13.2 Hypertensive heart and chronic kidney disease with heart failure and with stage 5 chronic kidney disease, or end stage renal disease; K92.2 Gastrointestinal hemorrhage, unspecified; N93.8 Other specified abnormal uterine and vaginal bleeding; N18.6 End stage renal disease; E11.22 Type 2 diabetes mellitus with diabetic chronic kidney disease; I50.9 Heart failure, unspecified; Z99.2 Dependence on renal dialysis; D63.1 Anemia in chronic kidney disease; N25.81 Secondary hyperparathyroidism of renal origin; E78.5 Hyperlipidemia, unspecified; Z20.822 Contact with and (suspected) exposure to COVID-19; Z83.3 Family history of diabetes mellitus; Z84.1 Family history of disorders of kidney and ureter; Z82.49 Family history of ischemic heart disease and other diseases of the circulatory system; H54.7 Unspecified visual loss
CPT/HCPCS: 36415; 71045; 74018; 76830; 76856; 80048; 80053; 82948; 83540; 84466; 85014; 85018; 85025; 85610; 86704; 86706; 86850; 86900; 86920; 87340; 88305; 90962; 93005; 93931; 93971; 96372; 97139; 99284; G0378; J0360; J1100; J1644; J2001; J2250; J2405; J2916; J3010; J7030; J7040; J7050; P9016; U0002